=== PATIENT | male | born 1930 | race Caucasian/White ===

== ENCOUNTER 2017-04-07 12:48 | Inpatient (IN) | payer OTHER, MEDICARE ==
[~2017-04-07] VITALS: Ht 177.8 cm; Wt 104.9 kg
--- NOTE | 2017-04-07 13:14 | NUR ---
PT TO ED FOR BILATERAL LOWER LEG SWELLING AND REDNESS, SIB DR PEREZ, LEGS APPEAR VERY EDEMATOUS AND RED.
--- NOTE | 2017-04-07 13:40 | NUR ---
PT ALERT, HELPED ONTO STRETCHER. PT HAS BILATERAL LOWER EXTREMITIY EDEMA THAT IS BANDAGED. PT REPORTS WAS JUST AT DR OFFICE AND THEY WERE WRAPPED. PT STATES THAT HE IS HERE TO BE ADMITTED. PT IN NAD.
--- NOTE | 2017-04-07 14:11 | RADIOLOGY REPORT ---
EXAMINATION: XR PORTABLE CHEST CLINICAL INFORMATION: Chronic edema. COMPARISON: Chest radiograph 01/13/2007. TECHNIQUE: Portable frontal view of the chest was obtained. FINDINGS: There are ill-defined opacities within both upper lobes. Lung bases are clear. There is no pleural effusion or pneumothorax. The cardiac silhouette and upper mediastinal contours are unremarkable. No acute osseous finding. IMPRESSION: There are ill-defined bilateral upper lobe opacities. An additional lateral projection can be obtained. Alternatively a dedicated CT scan of the chest can be obtained for better anatomic characterization of these findings.
--- NOTE | 2017-04-07 14:12 | NUR ---
BLOOD DRAWN AND SENT TO THE LAB ([facility])
--- NOTE | 2017-04-07 14:33 | NUR ---
LOVE JEAN IN LAB, RN NOTIFIED
--- NOTE | 2017-04-07 14:48 | ED SKIN/ALLERGY COMPLAINT ---
History of Present Illness General Chief Complaint: Lower Extremity Problems Stated Complaint: BILATERAL LEG WOUNDS SENT BY DR. STINSON Source: patient, old records Exam Limitations: no limitations Vital Signs & Intake/Output Vital Signs & Intake/Output Vital Signs Date Time Temp Pulse Resp B/P B/P Pulse O2 O2 Flow FiO2 Mean Ox Delivery Rate 04/07 1314 98.0 72 18 150/70 100 Room Air Allergies Coded Allergies: No Known Allergies (04/07/17) Triage Note: PT TO ED FOR BILATERAL LOWER LEG SWELLING AND REDNESS, SIB DR PEREZ, LEGS APPEAR VERY EDEMATOUS AND RED. Triage Nurses Notes Reviewed? yes Onset: 6 weeks Duration: week(s):, constant, continues in ED, getting worse Timing: recent history Severity: severe Location: extremities Possible Factors: no cause identified No Modifying Factors: none Associated Symptoms: blisters, change in skin texture, rash HPI: 6 weeks prior to admission patient complains of increasing swelling to bilateral lower extremities with wheezing of fluid. He denies fever chills nausea vomiting diarrhea abdominal pain chest pain shortness breath headache dysuria bleeding. Past History Travel History Traveled to [place] past 21 day No Medical History Any Pertinent Medical History? see below for history Neurological: NONE [place]: [place] Cardiovascular: AFIB, SVT Respiratory: NONE Gastrointestinal: NONE Hepatic: NONE Renal: NONE Musculoskeletal: NONE Psychiatric: NONE Endocrine: diabetes Blood Disorders: NONE Cancer(s): NONE Surgical History Surgical History: non-contributory Psychosocial History Past Psychosocial History Unobtainable at this time Tobacco Use: Never used ETOH Use: denies use Illicit Drug Use: denies illicit drug use Family History Hx Contributory? No Review of Systems Review of Systems Constitutional: Reports: no symptoms. EENTM: Reports: no symptoms. Respiratory: Reports: no symptoms. Cardiovascular: Reports: no symptoms. GI: Reports: no symptoms. Genitourinary: Reports: no symptoms. Musculoskeletal: Reports: no symptoms. Skin: Reports: see HPI, change in skin color, rash. Neurological/Psychological: Reports: no symptoms. Hematologic/Endocrine: Reports: no symptoms. Immunologic/Allergic: Reports: no symptoms. All Other Systems: Reviewed and Negative Physical Exam Physical Exam General Appearance: well developed/nourished, alert, awake, anxious, moderate distress, obese Head: atraumatic, normal appearance Eyes: Bilateral: normal appearance, PERRL, EOMI. Ears, Nose, Throat: normal pharynx, normal ENT inspection, hearing grossly normal Neck: normal inspection, supple, full range of motion Respiratory: normal breath sounds, chest non-tender, no respiratory distress, quiet respiration, lungs clear Cardiovascular: normal peripheral pulses, irregularly irregular, norml femoral pulses equa Peripheral Pulses: 4+ carotid (R), 4+ carotid (L) Gastrointestinal: normal bowel sounds, soft, non-tender, no organomegaly Back: normal inspection, normal range of motion, no vertebral tenderness Extremities: normal inspection, normal capillary refill, normal range of motion, pedal edema, no ligament instability Neurologic/Psych: no motor/sensory deficits, awake, alert, oriented x 3, normal gait, normal mood/affect Reflexes: 2+: bicep (R), bicep (L). Skin: rash Skin Problem Location: lower extremities Skin Problem Character: patchy (Erythema), rash, scales, swelling, thickening Lymphatic: no anterior cervical art Progress Differential Diagnosis: abscess/cellulitis, contact dermatitis, CHF, lymphedema Plan of Care: Orders Procedure Date/time Status Regular Diet 04/07 D Active BLOOD CULTURE 04/[address] CHEST WO IV CONTRAST 04/07 1421 Active OXYGEN SETUP (GEN) 04/07 1340 Active Saline Lock 04/07 1340 Active Admit to inpatient 04/07 1340 Active Vital Signs 04/07 1340 Active Activity/Ambulation 04/07 1340 Active TROPONIN LEVEL 04/07 1340 Complete MAGNESIUM 04/07 1340 Complete COMPREHENSIVE METABOLIC PANEL 04/07 1340 Complete CBC WITHOUT DIFFERENTIAL 04/07 1340 Complete B-TYPE NATRIURETIC PEP (BNP) 04/07 1340 Complete EKG 04/07 1340 Active Code Status 04/07 1340 Active Laboratory Tests 04/07/17 1440: RBC 3.63 L, MCV 94.7 H, MCH 31.0, RDW 13.8, MPV 9.0, Gran % 79.2 H, Lymphocytes % 12.2 L, Monocytes % 7.1, Eosinophils % 1.1, Basophils % 0.4, Absolute Granulocytes 6.0, Absolute Lymphocytes 0.9 L, Absolute Monocytes 0.5, Absolute Eosinophils 0.1, Absolute Basophils 0, PUBS MCHC 32.8 L 04/07/17 1406: Anion Gap 10, Estimated GFR 53 L, BUN/Creatinine Ratio 32.3 H, Glucose 124 H, Calcium 8.8, Magnesium 2.2, Total Bilirubin 0.9, AST 31, ALT 50, Alkaline Phosphatase 87, Troponin I 0.02, [id number] Pept 4070 H, Total Protein 6.5, Albumin 3.5, Globulin 3.0, Albumin/Globulin Ratio 1.2 Microbiology 04/07 1440 BLOOD: Blood Culture - RECD 04/07 1421 BLOOD: Blood Culture - ORD Diagnostic Imaging: Viewed by Me: Radiology Read. Discussed w/RAD: Radiology Read. CXR Impression: There are ill-defined bilateral upper lobe opacities. An additional lateral projection can be obtained. Alternatively a dedicated CT scan of the chest can be obtained for better anatomic characterization of these findings. Departure Departure Time of Disposition: 1512 Disposition: STILL A PATIENT Condition: Stable Clinical Impression Primary Impression: Cellulitis Qualifiers: Site of cellulitis: extremity Site of cellulitis of extremity: lower extremity Laterality: unspecified laterality Qualified Code: L03.119 - Cellulitis of unspecified part of limb Secondary Impressions: Atrial fibrillation with normal ventricular rate, Lymphedema of both lower extremities Referrals: PATIENT HAS NO PRIMARY CARE DR (PCP/Family) Departure Forms: Customer Survey General Discharge Information Admission Note Spoke With: PENNY JOHNSON,TRA Documentation of Exam: Documentation of any treatments & extenuating circumstances including Concerns Regarding Discharge (functional status, medication knowledge or non-compliance, living conditions, etc.) that warrant an admission rather than observation: IV antibiotics IV diuresis serial lab exam cardiology evaluation medication adjustment physical therapy continuing care discharge planning
[2017-04-07 14:58] LABS: ABSOLUTE BASOPHIL COUNT 0 /CUMM (0.0-0.2); ABSOLUTE EOSINOPHIL COUNT 0.1 /CUMM (0.0-0.7); ABSOLUTE LYMPH COUNT 0.9 /CUMM (1.2-3.4); ABSOLUTE MONOCYTE COUNT 0.5 /CUMM (0.10-0.60); BASOPHIL % 0.4 % (0.0-2.0); EOSINOPHIL % 1.1 % (0-5); HEMATOCRIT 34.4 % (42-52); MEAN CORPUSCULAR HGB CONC 32.8 G/DL (33.0-37.0); MEAN CORPUSCULAR VOLUME 94.7 FL (80.0-94.0); PLATELET COUNT 171 /CUMM (130-400); RBC DISTRIBUTION WIDTH 13.8 % (11.5-14.5); RED BLOOD CELL CT 3.63 /CUMM (4.70-6.10); WHITE BLOOD CELL COUNT 7.6 /CUMM (4.8-10.8)
[2017-04-07 14:59] LABS: GRANULOCYTE % 79.2 % (42.2-75.2)
--- NOTE | 2017-04-07 15:56 | NUR ---
PT RETURNED FROM CT SCAN
--- NOTE | 2017-04-07 16:07 | NUR ---
PT GIVEN DINNER TRAY
--- NOTE | 2017-04-07 16:12 | CT SCAN REPORT ---
EXAMINATION: CT CHEST WITHOUT CONTRAST CLINICAL INFORMATION: Apical opacities on plain film. Chronic edema. COMPARISON: Chest x-ray 04/07/2017 TECHNIQUE: Multidetector volumetric CT imaging of the chest was done. Axial MIP volume rendering provided. Sagittal and coronal reformatted images were obtained. No oral or intravenous contrast. DLP: 382.38 mGy-cm FINDINGS: LUNGS: There is a vague approximately 1 cm groundglass opacity in the anterior right upper lobe, sagittal image 101. There is a 1.8 cm groundglass opacity at the right lung apex, coronal image 75. These are nonspecific. There is no consolidative infiltrate. There are a few small subpleural reticular opacities particularly in the right upper lobe. The central bronchial airways are open. No bronchiectasis. No interstitial changes. MEDIASTINUM: Atherosclerotic vascular wall calcifications of aorta and the origin of great vessels. There is coronary artery calcification. No mediastinal mass or lymphadenopathy. PLEURA: There is no pleural effusion. No pleural mass or thickening. AXILLA: No lymphadenopathy. UPPER ABDOMEN: Multiple renal cortical cysts. OSSEOUS STRUCTURES: Multilevel degenerative spondylosis of spine with disc height narrowing and endplate spurs of vertebrae. IMPRESSION: 2 small groundglass opacities in the right upper lobe.. The groundglass opacity can be followed up in 6 months as per 2017 Fleischner Society recommendations . The lungs are otherwise clear.
--- NOTE | 2017-04-07 18:12 | History & Physical ---
CHELITA AVILEZ MD 04/07/17 1811: General Information and HPI MD Statement: I have seen and personally examined RICCI BECKER and documented this H&P. The patient is a 86 year old M who presented with a patient stated chief complaint of [increased lower extremity swelling and erythema]. Source of Information: patient Exam Limitations: no limitations History of Present Illness: Patient is a 86-year-old male with past medical history significant for chronic venous insufficiency, atrial fibrillation (follows Dr. Schmidt), SVT, Type 2 diabetes (on metformin) came to the ER after being sent by Dr. Adler for progressive worsening of lower extremity edema requiring inpatient management. Patient had a long history of bilateral lower extremity edema has been following with wound care requiring compression stockings. For the past 2 months he has been on Joss bandages. Further his Lasix has been increased from 40 twice a day to 40 TID as his edema is getting worse. In addition the wounds in the right lower extremity weeping and erythematous, while left ovary approximately is crusted without any evident discharge. He denies any recent fevers, chills, infections. Able to tolerate his diet well. No recent changes in appetite/diet/medications (except Lasix). Reportedly patient is active at baseline, performs his ADLs with the help of his by himself. He usually drives to the wound center by himself. He takes his medications by himself, but unable to provide a list. Allergies/Medications Allergies: Coded Allergies: No Known Allergies (04/07/17) Home Med list Allopurinol 100 MG TABLET 1 TAB PO DAILY GOUT (Reported) Atorvastatin Calcium (Lipitor) 20 MG TABLET 1 TAB PO DAILY HLD (Reported) Furosemide (Lasix) 40 MG TABLET 1 TAB PO BID LEG SWELLING (Reported) Lisinopril 10 MG TABLET 1 TAB PO DAILY HTN (Reported) Metformin HCl (Glucophage) 1,000 MG TABLET 1 TAB PO DAILY DM (Reported) Metoprolol Tartrate 25 MG TABLET 1 TAB PO BID SVT (Reported) Potassium Chloride (Klor-Con) 20 MEQ PACKET 1.5 PO DAILY CHF (Reported) Warfarin Sodium 5 MG TABLET 1 TAB PO DAILY A FIB (Reported) Compliance With Home Meds: GOOD Past History Travel History Traveled to [place] past 21 day No Medical History Neurological: NONE EENT: [place] Cardiovascular: AFIB, SVT Respiratory: NONE Gastrointestinal: NONE Hepatic: NONE Renal: NONE Musculoskeletal: NONE Psychiatric: NONE Endocrine: diabetes Blood Disorders: NONE Cancer(s): NONE Surgical History Surgical History: non-contributory Past Family/Social History Psychosocial History Past Psychosocial History Unobtainable at this time Where do you live? Home Who Do You Live With? spouse Services at Home: None Smoking Status: Former Smoker ETOH Use: occasional use Illicit Drug Use: denies illicit drug use Functional Ability ADLs Independent: dressing, eating, toileting, bathing. Ambulation: independent IADLs Independent: shopping, housework, finances, food prep, telephone, transportation , medication admin. Review of Systems Review of Systems Constitutional: Reports: see HPI. EENTM: Reports: see HPI. Cardiovascular: Denies: chest pain. Respiratory: Denies: cough, orthopnea, short of breath. GI: Denies: abdominal pain. Genitourinary: Denies: see HPI. Comments ROS negative except above Exam & Diagnostic Data Last 24 Hrs of Vital Signs/I&O Vital Signs Date Time Temp Pulse Resp B/P B/P Pulse O2 O2 Flow FiO2 Mean Ox Delivery Rate 04/07 1314 98.0 72 18 150/70 100 Room Air Intake & Output 04/07 1600 04/07 0800 04/07 0000 Intake Total Output Total Balance Patient 102.058 kg Weight Weight Reported by Patient Measurement Method Physical Exam General Appearance Alert, Oriented X3, Cooperative, No Acute Distress Skin No Rashes, No Breakdown, warm to touch HEENT Atraumatic, PERRLA, EOMI Neck Supple Cardiovascular Normal S1, Normal S2 Lungs Clear to Auscultation, Normal Air Movement Abdomen Normal Bowel Sounds, Soft, No Tenderness Neurological Normal Speech, Sensation Intact Extremities No Clubbing, No Cyanosis, bilateral lower extremity edema with extensive skin breakdown with erythema, plate formation, scaly skin. Weeping evident on right side greater than left side. Vascular Normal Pulses Body Front and Back (Adult) 1) Extensive skin breakdown, scaly, crusted, wheeping on the right side. Erthema evident on the right > left side. Last 24 Hrs of Labs/Robin: Laboratory Tests 04/07/17 1440: PT Pending, INR Pending, RBC 3.63 L, MCV 94.7 H, MCH 31.0, RDW 13.8, MPV 9.0, Gran % 79.2 H, Lymphocytes % 12.2 L, Monocytes % 7.1, Eosinophils % 1.1, Basophils % 0.4, Absolute Granulocytes 6.0, Absolute Lymphocytes 0.9 L, Absolute Monocytes 0.5, Absolute Eosinophils 0.1, Absolute Basophils 0, PUBS MCHC 32.8 L 04/07/17 1406: Anion Gap 10, Estimated GFR 53 L, BUN/Creatinine Ratio 32.3 H, Glucose 124 H, Calcium 8.8, Magnesium 2.2, Total Bilirubin 0.9, AST 31, ALT 50, Alkaline Phosphatase 87, Troponin I 0.02, [id number] Pept 4070 H, Total Protein 6.5, Albumin 3.5, Globulin 3.0, Albumin/Globulin Ratio 1.2 Microbiology 04/07 1515 BLOOD: Blood Culture - RECD 04/07 1440 BLOOD: Blood Culture - RECD Assessment/Plan Assessment: 86-year-old male with PMH of A. fib, SVT, diabetes was sent to ED by for progressive worsening of bilateral leg swelling. ER course Vital signs Afebrile, pulse 72, blood pressure 150/70 mmHg, on room air Significant labs Creatinine 1.3 (unknown baseline) INR is 1.39 Imaging Chest x-ray There are ill-defined bilateral upper lobe opacities. An additional lateral projection can be obtained. Alternatively a dedicated CT scan of the chest can be obtained for better anatomic characterization of these findings. Chest CT 2 small groundglass opacities in the right upper lobe. The groundglass opacity can be followed up in 6 months as per 2017 Fleischner Society recommendations . The lungs are otherwise clear. Plan Admitted to general medicine floor Bilateral lower extremity edema - suspected cellulitis Long-standing history of chronic venous insufficiency resulting in bilateral lower extremity edema. He has been following wound care center with recent change in dressings and Joss bandages from stockings, recent increase in Lasix dose to 120 mg from 80 mg. Despite any improvement there is progressive worsening of the condition with increased pain/erythema/warmth concerning superadded infection. Although he had clustered weeping wounds, he remained afebrile without any white count. * Start IV Lasix 40 mg twice a day. * Watch off antibiotics * Encourage leg elevation, local wound care. * Closely Monitor creatinine. * Starting Unasyn IV every 6 * Pain control with oxycodone 10 mg every 8 when necessary, IV Tylenol * Wound care consult Rate controlled Atrial fibrillation Patient reports he was not in A. fib 6 months ago. He follows Dr. River ( casing puller) for SVT and A. fib. Currently we are not sure whether this is acute versus chronic. INR of 1.39 suggests he is on anticoagulation. * Rate control with metoprolol tartrate 25 twice a day * anti-cognition with warfarin - goal INR 2-3 * CHADVasc score of 3 * Cardiology consult Chronic and stable conditions Diabetes mellitus: Accu-Cheks and insulin sliding scale (on metformin at home) Gout: Allopurinol 100 mg daily DVT prophylaxis * On warfarin CODE STATUS * Full code As Ranked By This Provider Problem List: 1. Cellulitis Qualifiers Site of cellulitis: extremity Site of cellulitis of extremity: lower extremity Laterality: unspecified laterality Qualified Code: L03.119 - Cellulitis of unspecified part of limb 2. Atrial fibrillation with normal ventricular rate 3. Lymphedema of both lower extremities Core Measures/Miscellaneous Acute Coronary Syndrome ACS Diagnosis: No Cerebrovascular Accident CVA/TIA Diagnosis: No Congestive Heart Failure CHF Diagnosis: No Venous Thromboembolism VTE Risk Factors: Immobility, paresis No [facility] VTE prophylaxis d/t: No contraindications No VTE Pharm Prophylaxis d/t: No contraindications VTE Diagnosis: No VTE Type: NONE VTE Confirmed by (Test): NONE Severe Sepsis Severe Sepsis Present: No Septic Shock Septic Shock Present: No Miscellaneous Documentation Attending Case Discussed With: TRA FRANCIS MD Primary Care Physician: PATIENT HAS NO PRIMARY CARE DR Patient sees these Specialists Dr. Trevino Level of Patient Care: General Medicine TRA FRANCIS MD 04/07/17 3712: Attending MD Review Statement Attending Statement Attending MD Statement: examined this patient, discuss w/resident/PA/ADULT PROBATION OFFICER, agreed w/resident/PA/ADULT PROBATION OFFICER, reviewed EMR data (avail) Attending Assessment/Plan: 86M PMH atrial fibrillation, T2DM sent from wound clinic for worsening of bilateral leg cellulitis. Both legs are erythematous, warm, and swollen. Patient complains of discomfort but is otherwise fine, afebrile, normal WBC. Suspect more stasis dermatitis than cellulitis since it's bilateral. ED gave Unasyn. Will need leg elevation, wound care consult, compression. Can continue antibiotics for another few days. BUFFY JOHNSON,KAYODE 04/07/17 2012: Resident Review Statement Other Findings: 86-year-old male with past medical history of A. fib, SVT, diabetes was sent to ED by for worsening of bilateral leg swelling. Patient has history of bilateral leg swelling for more than 10 years, which has been well-controlled for so many years as he was using compression stockings. Patient recently switched to Joss bandage over the last 2 months and noticed that his swelling was getting worse with right leg more than the left. He is on 80 mg of Lasix by mouth at home, has recently been taking 120. Denies fever, chills, shortness of breath, palpitations, chest pain or pressure. He has been following up with Dr. Allen and Dr. River for SVT. Atrial fibrillation has had history of a atrial fibrillation in the past. On examination patient alert awake oriented, no acute distress Cardiovascular: S1, S2 regular Respiratory: Bilateral breath sounds equal, no wheeze monitor crackles Abdomen: Soft, nontender, bowel sounds present Extremities: Bilateral leg swelling with discoloration of the skin present on both legs. Right leg swelling than the left. Some hyperemic areas visible on the right leg. Please refer to H&P for labs and vitals and imaging studies Assessment and plan 1. Bilateral lower extremity swelling secondary to venous stasis( no fever, white count which is against infection) - We'll admit patient to general medical floor - Leg elevation - Strict I's and O's - We'll start him on IV Lasix with close creatinine monitoring - Patient received 1 dose of Unasyn. Since no white count or fever we will monitor him off antibiotics - WOund consullt in AM 2. History of SVT - We will continue beta blockers. - Follows Dr. Alexei River 3. History of atrial fibrillation - Current EKG showed A. fib etiology unclear, rate controlled - CHADS Vasc score is 3. - We will check his INR and dose coumadin accordingly Full CODE STATUS DVT ppx with coumadin
--- NOTE | 2017-04-07 18:24 | PN- Student ---
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 The patient was diagnosed with venous stasis by Dr. Richardson 7 years and has been using compresison to control the swelling. He was in his usual state of health until 2 months ago when he started to have progressively worsening burning pain, redness , and swelling in the lower extremities. He describes his pain as a 4/10 at rest and a 9/10 while walking. The pt states that he went to his oracle application consultant and recommended him to go to a sample coordinator for his " skin". Software Integrator prescribed him triamcinolone acetonide 0.1% on his legs, but he states that it made his pain worse. He decided to "sterile" cotton in the internet and EVELYNE bandages to wrap his legs to allow the " skin to come off." However, this caused his legs to swell and hurt more. He states that he puts Eucerin on occassion to help the burning. ROS: Denies fever, chills, orthopnea, SOB, palpitations, Nausea, vomiting, constipation, diarrhea PMHX: Atrial Fibrillation diagnosed 10 years ago SVT diagnosed 20 years ago Venous stasis diagnosed 7 years ago SGHX: Repaired nose Medications: Furosemide 40 mg TID Metformin (Need to do Med Rec) Allergies: NKDA Social Hx: , lives with Retired Stopped smoking in 1967 ETOH: 1 drink every day. Stopped drinking a 1 1/2 week ago due to his leg swelling and pain Objective Objective: PE: Neuro: Alert and Oriented. Cooperative, affect is appropriate. CV: Irregular rate and rhythm heard upon auscultation. Lungs: Clear bilaterally. No wheezes, rhonchi, or rales Abdomen: Normal bowel sound in all 4 quadrants. Nondistended, nontender. : Scrotal swelling present LE: Bilateral edema in the lower extremities. Warm to touch. Erythema and open wounds in the right lower leg. Vital Signs Date Time Temp Pulse Resp B/P B/P Pulse O2 O2 Flow FiO2 Mean Ox Delivery Rate 04/07 1314 98.0 72 18 150/70 100 Room Air Last 24 Hours I&Os 04/07 1600 04/07 0800 04/07 0000 Intake Total Output Total Balance Patient 225 lb Weight Weight Reported by Patient Measurement Method Laboratory Tests 04/07/17 1440: RBC 3.63 L, MCV 94.7 H, MCH 31.0, RDW 13.8, MPV 9.0, Gran % 79.2 H, Lymphocytes % 12.2 L, Monocytes % 7.1, Eosinophils % 1.1, Basophils % 0.4, Absolute Granulocytes 6.0, Absolute Lymphocytes 0.9 L, Absolute Monocytes 0.5, Absolute Eosinophils 0.1, Absolute Basophils 0, PUBS MCHC 32.8 L 04/07/17 1406: Anion Gap 10, Estimated GFR 53 L, BUN/Creatinine Ratio 32.3 H, Glucose 124 H, Calcium 8.8, Magnesium 2.2, Total Bilirubin 0.9, AST 31, ALT 50, Alkaline Phosphatase 87, Troponin I 0.02, Xsq-[id number]-Muuvttbuwwv Pept 4070 H, Total Protein 6.5, Albumin 3.5, Globulin 3.0, Albumin/Globulin Ratio 1.2 Microbiology Date/Time Procedure - Status Source Growth 04/07 1515 Blood Culture - RECD BLOOD Orders Procedure Date/time Status Regular Diet 04/07 D Active Patient Data 04/07 1531 Active Intake & Output 04/07 1448 Active BLOOD CULTURE 04/07 1421 Active OXYGEN SETUP (GEN) 04/07 1340 Active Saline Lock 04/07 1340 Active Admit to inpatient 04/07 1340 Active Vital Signs 04/07 1340 Active Activity/Ambulation 04/07 1340 Active TROPONIN LEVEL 04/07 1340 Complete MAGNESIUM 04/07 1340 Complete COMPREHENSIVE METABOLIC PANEL 04/07 1340 Complete CBC WITHOUT DIFFERENTIAL 04/07 1340 Complete B-TYPE NATRIURETIC PEP (BNP) 04/07 1340 Complete EKG 04/07 1340 Active Code Status 04/07 1340 Active EKG: Rate 65, Irregularly Iregular, normal axis. No P waves before QRS. Suggestive of Afib Assessment/Plan Assessment: Assessment: Pt. is an 86 y.o MCM with a history of Afib, SVT, DM, and venous stasis presenting with a 2 mo hx of progressively worsening bilateral LE edema, erythema, and burning pain. DDx: Cellulitis: Pt. presents with erythmea, edema, warmth, and pain and labs shows granulocytosis. He also has a history of venous stasis that could have precipitated cellulitis. Afib: Pt. has a history of Afib. Heart rate was irregularly irregular upon auscultation. Insufficient cardiac pumping can cause blood to back up into the systemic system. HF: Pt. has leg swelling and current Afib. Arrythmias can precipitate heart failure and cause his legs to be edematous Plan: Admit to [facility] floor 1. Leg swelling: empiric treatment for possible infection. Daily CBC. Lasix to decrease swelling
--- NOTE | 2017-04-07 18:54 | Admission Certification ---
Admission Certification Certification Statement - As attending physician, I certify that at the time of - admission, based on clinical presentation, severity of - symptoms, need for further diagnostic testing and - therapeutic interventions, and risk of adverse outcomes - without in-hospital treatment, in my clinical assessment, - this patient requires an acute hospital stay for a minimum - of two nights or longer. I have also considered psychsocial - factors such as support system, advanced age, financial - issues, cognitive issues, and failed out-patient treatments, - past re-admission history, safety of patient, and lack of - compliance as applicable. Specific rationale supporting this admission is: Worsening bilateral leg cellulitis with erythema, wamrth, and weeping
--- NOTE | 2017-04-07 20:14 | NUR ---
PT RESTING COMFORTABLY ON STRETCHER, DENIES NEEDS AT THIS TIME, VSS. AWAITING ADMISSION.
[2017-04-07] MEDS ORDERED: GLUCOPHAGE1000 M1 PO (20:56)
[2017-04-07] MEDS ORDERED: KLOR-CON20 ME1 PO (20:56)
[2017-04-07] MEDS ORDERED: METOPROLOL TART25 M1 PO (20:57)
[2017-04-07] MEDS ORDERED: LASIX40 M1 PO (20:57)
[2017-04-07] MEDS ORDERED: WARFARIN SODIUM5 M1 PO (20:57)
[2017-04-07] MEDS ORDERED: ALLOPURINOL100 M1 PO (20:57)
[2017-04-07] MEDS ORDERED: LISINOPRIL10 M1 PO (20:58)
[2017-04-07] MEDS ORDERED: LIPITOR20 M2 PO (20:58)
[2017-04-07 21:27] LABS: PT 14.5 SEC (9.4-12.5)
--- NOTE | 2017-04-07 23:59 | NUR ---
PT GOING TO ROOM 230-2
[2017-04-08 00:59] VITALS: BP 134/60
--- NOTE | 2017-04-08 02:07 | Event Note ---
Event Note Event Note: ALPs discontinued due to discomfort.
[2017-04-08 06:45] VITALS: BP 100/70
--- NOTE | 2017-04-08 07:01 | PN- Housestaff ---
FATMATA JOHNSON,CHELITA 04/08/17 0701: Subjective Follow-up For: Bilateral lower extremity edema Suspected Cellulitis Subjective: I saw and examined the patient today morning He is doing well, No overnight events. Still had pain in the lower extremities. No fever, chills. Review of Systems Constitutional: Reports: see HPI. Comments: ROS negative except the above. Objective Last 24 Hrs of Vital Signs/I&O Vital Signs Date Time Temp Pulse Resp B/P B/P Pulse O2 O2 Flow FiO2 Mean Ox Delivery Rate 04/08 0645 97.9 77 20 100/70 96 Room Air 04/08 0059 99.6 58 20 134/60 96 Room Air 04/07 2300 98.5 69 18 141/65 04/07 2259 98.5 69 18 141/65 97 Room Air Room Air 04/07 2014 98.7 76 16 156/72 97 Room Air 04/07 1314 98.0 72 18 150/70 100 Room Air Intake & Output 04/08 0800 04/08 0000 04/07 1600 Intake Total Output Total 800 Balance -800 Output, Urine 800 Patient 102.058 kg 102.058 kg Weight Weight Reported by Patient Reported by Patient Measurement Method Physical Exam General Appearance: Alert, Oriented X3, Cooperative, No Acute Distress Skin: No Rashes, No Breakdown HEENT: Atraumatic, PERRLA, EOMI Neck: Supple Cardiovascular: Normal S1, Normal S2 Lungs: Clear to Auscultation, Normal Air Movement Abdomen: Normal Bowel Sounds, Soft, No Tenderness Neurological: Normal Speech, Strength at 5/5 X4 Ext, Sensation Intact Extremities: No Clubbing, No Cyanosis, 4+ pitting edema present Vascular: Normal Pulses Current Medications: Current Medications Sig/Elliot Start time Last Medication Dose Route Stop Time Status Admin Acetaminophen 650 MG Q8P PRN 04/07 2115 AC 04/08 PO 0341 Acetaminophen 1,000 MG Q8P PRN 04/07 2115 AC IV Allopurinol 100 MG DAILY 04/08 1000 AC PO Ampicillin Sodium/ 3,000 MG Q6H 04/08 0200 AC 04/08 Sulbactam Sodium IV 0223 Sodium Chloride 100 ML Ampicillin Sodium/ 3,000 MG Q6 04/07 2359 DC Sulbactam Sodium IV Sodium Chloride 100 ML Ampicillin Sodium/ 0 .STK-MED ONE 04/07 1533 DC Sulbactam Sodium .ROUTE Ampicillin Sodium/ 3,000 MG ONCE ONE 04/07 1515 DC 04/07 Sulbactam Sodium IV 04/07 1544 1538 Sodium Chloride 100 ML Atorvastatin Calcium 20 MG DAILY 04/08 1000 AC PO Enoxaparin Sodium 40 MG DAILY 04/08 1000 CAN SC Furosemide 40 MG DAILY 04/08 1000 AC IV Furosemide 0 .STK-MED ONE 04/07 1533 DC IV Furosemide 40 MG ONCE ONE 04/07 1515 DC 04/07 IV 04/07 1516 1538 Insulin Aspart 0 TIDAC 04/08 0800 AC SC Metoprolol Tartrate 0 .STK-MED ONE 04/07 2257 DC PO Metoprolol Tartrate 25 MG BID 04/07 2200 AC 04/07 PO 2300 Oxycodone HCl 10 MG Q8P PRN 04/075 AC PO Warfarin Sodium 5 MG ONCE ONE 04/07 2145 DC 04/07 PO 04/07 2146 2300 Last 24 Hrs of Lab/Robin Results Last 24 Hrs of Labs/Mics: Laboratory Tests 04/08/17 0619: Anion Gap 10, Estimated GFR 53 L, BUN/Creatinine Ratio 27.7 H, PT 15.3 H, INR 1.46 H Assessment/Plan Assessment: 86-year-old male with PMH of A. fib, SVT, diabetes was sent to ED by for progressive worsening of bilateral leg swelling. Patient is mobile at baseline. Although warm and mildly tender to touch - no white count and leukocytosis --> less likely superadded cellulitis. We did a doppler ultrasound to rule out DVT given subtherapeutic INR and not very mobile - negative. Imaging Chest x-ray There are ill-defined bilateral upper lobe opacities. An additional lateral projection can be obtained. Alternatively a dedicated CT scan of the chest can be obtained for better anatomic characterization of these findings. Chest CT 2 small groundglass opacities in the right upper lobe. The groundglass opacity can be followed up in 6 months as per 2017 Fleischner Society recommendations . The lungs are otherwise clear. Plan Admitted to general medicine floor Bilateral lower extremity edema - suspected cellulitis Long-standing history of chronic venous insufficiency resulting in bilateral lower extremity edema. He has been following wound care center with recent change in dressings and Joss bandages from stockings, recent increase in Lasix dose to 120 mg from 80 mg. Despite any improvement there is progressive worsening of the condition with increased pain/erythema/warmth concerning superadded infection. Although he had clustered weeping wounds, he remained afebrile without any white count, so less likely of an infection. * IV Lasix 40 mg twice a day. * Watch off antibiotics * Encourage leg elevation, local wound care. * Closely Monitor creatinine. * Watching off antibiotics * Pain control with oxycodone 10 mg every 8 when necessary, IV Tylenol * Wound care consult Rate controlled Atrial fibrillation Patient reports he was not in A. fib 6 months ago. He follows Dr. Espinoza ( forest supervisor) for SVT and A. fib. Currently we are not sure whether this is acute versus chronic. INR of 1.39 suggests he is on anticoagulation. * Rate control with metoprolol tartrate 25 twice a day * anti-coagulation with warfarin - goal INR 2-3 * CHADVasc score of 3 Ground glass opacities Suggestive of 2 small ground glass opacities that requires follow up. Chronic and stable conditions Diabetes mellitus: Accu-Cheks and insulin sliding scale (on metformin at home) Gout: Allopurinol 100 mg daily DVT prophylaxis * On warfarin CODE STATUS * Full code Problem List: 1. Cellulitis 2. Atrial fibrillation with normal ventricular rate 3. Lymphedema of both lower extremities Pain Ratin Pain Location: right lower extremities Pain Goal: Pain 4 or less Pain Plan: tylenol prn oxycodon Tomorrow's Labs & Rationales: bep while on IV lasix to monitor electrolytes and creatinine. ENRIQUE ESPINOZA MD 04/08/17 1300: Attending MD Review Statement Attending Statement Attending MD Statement: examined this patient, discuss w/resident/PA/GENERAL CAR SUPERVISOR YARD, agreed w/resident/PA/GENERAL CAR SUPERVISOR YARD, reviewed EMR data (avail), discussed with nursing, discussed with case mgmt Attending Assessment/Plan: 86-year-old male past medical history of diabetes, A. fib on Coumadin and history of chronic stasis dermatitis. He says he followed with the wound care center 7 years ago then didn't follow-up and then came yesterday when he was sent to the emergency room for concern of cellulitis and worsening edema. He also says that he recently cut his Coumadin dose. On admission his INR was subtherapeutic, he was initially given antibiotics but given the lack of fever or white count and given that the skin changes all look chronic, at this point are watching him off antibiotics. We got an ultrasound of the right lower extremity because it was asymmetric edema and with a subtherapeutic INR, we were worried about a DVT. Luckily the ultrasound is negative for DVT. At this point I think the most important thing is leg elevation, aggressive diuresis watching his renal function closely and aggressive wound care. Will dose his Coumadin to keep his INR therapeutic and follow-up on wound care recommendations.
--- NOTE | 2017-04-08 07:50 | PN- Student ---
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 Pt. states he currently has a 1/10 burning leg pain in his lower legs which gets increases to a 9/10 when he is walking. He stated he slept poor because he felt hot, so he removed the blankets and felt more comfortable. Pt. also states that he reduced his warfarin dose in half due to his leg bleeding. Called the patient's 1330, she states that prior to the hospital, the pt would walk around, drive, go grocery shopping, carry all the groceries, and garden without any problem. Pt states that he was gardening last week, but stopped because his legs was hurting. The pt. and the states that he usually takes care of the household and has not had any outside help. Objective Objective: PE: Neuro and General: A&O x3, cooperative, and appropriate affect. He is in no apparent distress CV: HR=62, Irregular heart beats, no carotid bruits auscultated, JVP=9cm Pulmonary: Clear bilaterally. No rhonchi, wheezes, or rales GI: Normal bowel sounds in all 4 quadrants, nondistended, nontender. No aortic bruits heard upson auscultation : scrotal swelling LE: bilateral lower leg edema, erythema, warmth, and open wounds. Right leg is worse than the left. Right foot has 2+ pitting edema. Sharp sensation present in both feet. Doppler: States that there is no evidence of DVT. Found Cabrera's cyst 4.4 c Culture: No growth Day 1 Vital Signs Date Time Temp Pulse Resp B/P B/P Pulse O2 O2 Flow FiO2 Mean Ox Delivery Rate 04/08 1454 98.1 68 20 110/60 97 04/08 0910 70 120/50 04/08 0645 97.9 77 20 100/70 96 Room Air 04/08 0059 99.6 58 20 134/60 96 Room Air 04/07 2300 98.5 69 18 141/65 04/07 2259 98.5 69 18 141/65 97 Room Air Room Air 04/07 2014 98.7 76 16 156/72 97 Room Air 04/07 1314 98.0 72 18 150/70 100 Room Air Last 24 Hours I&Os 04/08 1600 04/08 0800 04/08 0000 Intake Total 640 Output Total 300 350 800 Balance 340 -350 -800 Intake, Oral 640 Output, Urine 300 350 800 Patient 225 lb Weight Weight Reported by Patient Measurement Method Laboratory Tests 04/08/17 0619: Anion Gap 10, Estimated GFR 53 L, BUN/Creatinine Ratio 27.7 H, PT 15.3 H, INR 1.46 H Microbiology Date/Time Procedure - Status Source Growth 04/07 1515 Blood Culture - RES BLOOD Orders Procedure Date/time Status BASIC ELECTROLYTES PLUS BUN&CR 04/09 06 Active Heart Healthy Diet 04/08 B Active Change service to 04/08 0817 Active PROTHROMBIN TIME 04/08 0600 Complete BASIC ELECTROLYTES PLUS BUN&CR 04/08 0600 Complete Vital Signs 04/08 0109 Active Teach/Educate 04/08 010 Active Pain Treatment and Response 04/08 0109 Active Nutritional Intake, Monitor 04/08 0109 Active Isolation 04/08 0109 Active Intake & Output 04/08 0109 Active Patient Care Conference 04/08 0109 Active Activity/Ambulation 04/089 Active Lab Add-on Test 04/08 UNK Active PHARMACY COMMUNICATION FORM 04/08 UNK Active Regular Diet 04/07 D Complete Add-on Test (ER Only) 04/07 2108 Active Pathway - chart 04/07 210 Active PROTHROMBIN TIME 04/07 205 Complete Pathway - chart 04/07 1845 Active House Staff 04/07 1845 Active Patient Data 04/07 1845 Active Code Status 04/07 1845 Active Patient Data 04/07 1531 Active Intake & Output 04/07 1448 Active BLOOD CULTURE 04/07 1421 Active GLYCOSYLATED HGB 04/07 1406 Complete OXYGEN SETUP (GEN) 04/07 1340 Active Saline Lock 04/07 1340 Active Admit to inpatient 04/07 1340 Active Vital Signs 04/07 1340 Active Activity/Ambulation 04/07 1340 Active TROPONIN LEVEL 04/07 1340 Complete MAGNESIUM 04/07 1340 Complete COMPREHENSIVE METABOLIC PANEL 04/07 1340 Complete CBC WITHOUT DIFFERENTIAL 04/07 1340 Complete B-TYPE NATRIURETIC PEP (BNP) 04/07 1340 Complete EKG 04/07 1340 Active Code Status 04/07 1340 Complete VTE Mechanical Prophylaxis 04/07 UNK Complete Nursing Misc 04/07 UNK Active Intake & Output 04/07 UNK Complete FingerStick- Glucose 04/07 UNK Active Elevate 04/07 UNK Active Assessment/Plan Assessment: Assessment and plan: 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 I think that this patient has an exacerbation of his venous stasis. The pt. decreased his warfarin and comes with bilateral leg edema and pain. We need continue his lasix to alleviate the fluid retention. Since he is also on warfarin, we need to monitor his INR and PT until it is in the therapeutic level. We also need to consult the wound team to get their recommendations. Although the patient has calor, dolor, palor, rubor, and granulocytosis, he does not exhibit any fever, chills, cough, or other signs of infection. We can put cellulitis as ddx, but it is lower in the list. Since he has asymmetric edema, we need to possibly consider other causes of his leg pain and swelling such as DVT. Doppler sound was performed and he did not show any thrombus in his legs. It does note a cabrera's cyst and I will read up on that. Since the patient's EKG showed Afib, it is possible that HF is causing his edema. Arrhythmias are one cause of heart failure, so this may be a possibility. He should continue on his cardiac medication and the proper does of warfarin.
[2017-04-08 08:17] LABS: PT 15.3 SEC (9.4-12.5)
--- NOTE | 2017-04-08 12:17 | ULTRASOUND REPORT ---
EXAMINATION: US TRIPLEX LOWER EXTREMITY, RIGHT CLINICAL INFORMATION: Pain and swelling COMPARISON: None TECHNIQUE: Color-flow triplex imaging with spectral analysis and compression Doppler were performed on the lower extremity. FINDINGS: Respiratory variation, normal compression and augmented flow are noted throughout the left lower extremity. The visualized common femoral vein, superficial femoral vein, profunda femoral vein, popliteal vein and midcalf peroneal and posterior tibial venous segments show no evidence of deep venous thrombosis. Cabrera's cyst measures up to 4.4 cm IMPRESSION: Normal triplex scan without evidence of deep venous thrombosis involving the lower extremity. Slightly limited evaluation of the calf veins. No definite DVT. Cabrera's cyst.
[2017-04-08 14:54] VITALS: BP 110/60
[2017-04-08 22:29] VITALS: BP 126/64
[2017-04-09 06:59] VITALS: BP 136/70
--- NOTE | 2017-04-09 07:24 | PN- Housestaff ---
FATMATA JOHNSON,CHELITA 04/09/17 0723: Subjective Follow-up For: stasis dermatitis bilateral lower extremity edema Subjective: I saw and examined the patient today morning He is doing well, reports intense pain in the lateral part of the right ankle region, which is similar to his pain during gout flare up. No overnight issues. No significant change in weight, infact increased 1lb. Review of Systems Constitutional: Reports: see HPI. Comments: ROS negative except the above. Objective Last 24 Hrs of Vital Signs/I&O Vital Signs Date Time Temp Pulse Resp B/P B/P Pulse O2 O2 Flow FiO2 Mean Ox Delivery Rate 04/09 0659 97.8 60 18 136/70 97 04/08 2229 99.7 60 20 126/64 97 Room Air 04/08 2121 69 128/70 04/08 1454 98.1 68 20 110/60 97 04/08 0910 70 120/50 Intake & Output 04/09 0800 04/09 0000 04/08 1600 Intake Total 100 734 640 Output Total 300 1000 300 Balance -200 -266 340 Intake, IV 14 Intake, Oral 100 720 640 Output, Urine 300 1000 300 Physical Exam General Appearance: Alert, Oriented X3, Cooperative, No Acute Distress Skin: No Rashes, erythematous wound in the right lower extremity. mild erythema over the left leg. HEENT: Atraumatic, PERRLA, EOMI Neck: Supple Cardiovascular: Normal S1, Normal S2 Lungs: Clear to Auscultation, Normal Air Movement Abdomen: Normal Bowel Sounds, Soft, No Tenderness Neurological: Normal Tone, Sensation Intact, Cranial Nerves 3-12 NL Current Medications: Current Medications Sig/Elliot Start time Last Medication Dose Route Stop Time Status Admin Acetaminophen 650 MG .STK-MED ONE 04/08 1745 DC PO 04/08 1746 Acetaminophen 650 MG Q8P PRN 04/07 2115 AC 04/09 PO 0152 Acetaminophen 1,000 MG Q8P PRN 04/07 211 AC IV Allopurinol 100 MG DAILY 04/08 1000 AC 04/08 PO 0910 Ampicillin Sodium/ 3,000 MG Q6H 04/08 0200 DC 04/08 Sulbactam Sodium IV 0223 Sodium Chloride 100 ML Atorvastatin Calcium 20 MG 1700 04/08 1700 AC 04/08 PO 1651 Atorvastatin Calcium 20 MG DAILY 04/08 1000 DC PO Furosemide 40 MG ONCE ONE 04/08 1630 DC 04/08 IV 04/08 1631 1651 Furosemide 40 MG DAILY 04/08 1000 AC 04/08 IV 0910 Insulin Aspart 0 TIDAC 04/08 0800 AC SC Metoprolol Tartrate 25 MG BID 04/07 2200 AC 04/08 PO 2121 Oxycodone HCl 10 MG Q8P PRN 04/07 2115 AC PO Patient Medication 1 ED .STK-MED ONE 04/08 1335 DC Teaching ED 04/08 1336 Warfarin Sodium 5 MG COUMADIN 1700 ONE 04/08 1700 DC 04/08 PO 04/08 1701 1651 Assessment/Plan Assessment: 86-year-old male with PMH of A. fib, SVT, diabetes was sent to ED by for progressive worsening of bilateral leg swelling. Patient is mobile at baseline. Although warm and mildly tender to touch - no white count and leukocytosis --> less likely superadded cellulitis. We did a doppler ultrasound to rule out DVT given subtherapeutic INR and not very mobile - negative. Imaging Chest x-ray There are ill-defined bilateral upper lobe opacities. An additional lateral projection can be obtained. Alternatively a dedicated CT scan of the chest can be obtained for better anatomic characterization of these findings. Chest CT 2 small groundglass opacities in the right upper lobe. The groundglass opacity can be followed up in 6 months as per 2017 Fleischner Society recommendations . The lungs are otherwise clear. Plan Admitted to general medicine floor Bilateral lower extremity edema - suspected cellulitis Long-standing history of chronic venous insufficiency resulting in bilateral lower extremity edema. He has been following wound care center with recent change in dressings and Joss bandages from stockings, recent increase in Lasix dose to 120 mg from 80 mg. Despite any improvement there is progressive worsening of the condition with increased pain/erythema/warmth concerning superadded infection. Although he had clustered weeping wounds, he remained afebrile without any white count, so less likely of an infection. * IV Lasix 80 mg twice a day. * Watch off antibiotics * Encourage leg elevation, local wound care. * Closely Monitor creatinine. * Pain control with oxycodone 10 mg every 8 when necessary, IV Tylenol * Wound care consult * Physical therapy suggested STR. Rate controlled Atrial fibrillation Patient reports he was not in A. fib 6 months ago. He follows Dr. River ( [employer]) for SVT and A. fib. INR is 1.39 at admission * Rate control with metoprolol tartrate 25 twice a day * anti-coagulation with warfarin - goal INR 2-3 -->2.0 today * CHADVasc score of 3 Right Ankle pain Patient had a history of gout, on allopurinol 100mg at home, colchicine for flares. He reports significant pain in his right heel, which apparently similar to his gouty attacks. * Xray right ankle shows soft tissue sweeling without any crystals. * started on colchicine 0.6mg BID for now. Ground glass opacities Suggestive of 2 small ground glass opacities that requires follow up. Chronic and stable conditions Diabetes mellitus: Accu-Cheks and insulin sliding scale (on metformin at home) Gout: Allopurinol 100 mg daily DVT prophylaxis * On warfarin CODE STATUS * Full code Problem List: 1. Lymphedema of both lower extremities 2. Atrial fibrillation with normal ventricular rate 3. Cellulitis Pain Ratin Pain Location: right heel region Pain Goal: Pain 4 or less Pain Plan: tylenol prn morphine Tomorrow's Labs & Rationales: bep to monitor K and Cr - on IV high dose diuretics ALEXIS JOHNSON,ENRIQUE 04/09/17 1451: Attending MD Review Statement Attending Statement Attending MD Statement: examined this patient, discuss w/resident/PA/OUTBOUND TELEMARKETER, agreed w/resident/PA/OUTBOUND TELEMARKETER, reviewed EMR data (avail), discussed with nursing, discussed with case mgmt Attending Assessment/Plan: 86-year-old male with past medical history of chronic right-sided heart failure with elevated PA pressures and A. fib on Coumadin who came in with severe bilateral lower extremity edema and stasis dermatitis. He was grossly volume overloaded on admission and is responding to IV Lasix. He's been watched off antibiotics as there is no evidence of cellulitis. Initially his INR was subtherapeutic but the ultrasound was negative for DVT and now his INR is therapeutic. He is complaining of right ankle joint pain. 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 The plan is to continue high dose IV Lasix 80 twice a day per cardiology and follow his renal function closely. Dose is Coumadin to keep his INR therapeutic at all times and follow bilateral lower extremities clinically.
--- NOTE | 2017-04-09 07:50 | PN- Student ---
Subjective Subjective: FOR TEACHING PURPOSES ONLY Source and reliability: Self-referred, seems reliable CC: "My legs are swollen and burning." Pt. is an 86 yo who was brought in due to leg swelling and pain. Pt. states that at rest his bilateral leg pain is a 0/10, which is improved since his admission. However, he still experiences a 9/10 right leg pain while ambulating. However, he noticed a new, acute pain in his lateral aspect of his ankle and the dorsal surface of his right foot while ambulating. He states he feels like his "ankle is being squeezed by a Boa constrictor." He states he is on tylenol for his pain , but is not sure if it's working because he immobilizes it to make it feel better. While resting, he is currently is in no apparent distress and states that he slept okay last night. @ 1330, the pt is stating he is having constant, 4/10, constricting, lateral ankle pain that travels 3 inches superiorly at rest. He states that the pain feels like his previous gout attacks. The pt. states that he takes 2 tabs of 0.6mg of colchine during a gout attack and 1 tab 0.6mg colchine and hour later. He states that this usually alleviates the pain. ROS: Complains of dry mouth. Denies CP, palpitations, dyspnea, abd pain, N/V/D. Objective Objective: PE: General: Cooperative and pleasant, in no apparent distress, affect is appropriate to situation Neuro: Alert and Oriented x3. Strength 4+ in dorsiflexion and plantarflexion. EENT: Hard of hearing CV: irregular heart beats with a HR of 53, asymptomatic. Pulm: Clear bilaterally. Does not use accessory muscles to breath. No wheezes, rhonchi, or rales GI: normal bowel sounds in all 4 quadrants. Non distended, nontender, no ascites present, no hepatomegaly : scrotal swelling has reduced LE: Bilateral lower leg erythema and edema present from the foot until the knee. Right lower leg reduced in size, but the right foot still has 4+ edema. DP 2+ left foot, unable to assess DP on the right because of tenderness. Walks with a walker and needs supervision. Derm: One inch fluid filled blister on the anterior aspect, below the knee of the right lower leg. Vital Signs Date Time Temp Pulse Resp B/P B/P Pulse O2 O2 Flow FiO2 Mean Ox Delivery Rate 04/09 1016 62 136/72 04/09 0659 97.8 60 18 136/70 97 04/08 2229 99.7 60 20 126/64 97 Room Air 04/08 2121 69 128/70 04/08 1454 98.1 68 20 110/60 97 04/08 0910 70 120/50 04/08 0645 97.9 77 20 100/70 96 Room Air 04/08 0059 99.6 58 20 134/60 96 Room Air 04/07 2300 98.5 69 18 141/65 04/07 2259 98.5 69 18 141/65 97 Room Air Room Air 04/07 2014 98.7 76 16 156/72 97 Room Air 04/07 1314 98.0 72 18 150/70 100 Room Air Last 24 Hours I&Os 04/09 1600 04/09 0800 04/09 0000 Intake Total 100 734 Output Total 077 811 5349 Balance -375 -200 -266 Intake, IV 14 Intake, Oral 100 720 Output, Urine 193 771 9930 Laboratory Tests 04/09/17 0630: Anion Gap 8, Estimated GFR 53 L, BUN/Creatinine Ratio 30.0 H, Uric Acid 8.1, PT 20.9 H, INR 2.00 H Microbiology Date/Time Procedure - Status Source Growth 04/07 1515 Blood Culture - RES BLOOD Doppler: No DVT, 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 Richardson saw the patient and feels that the pt's edema is reducing. Recommends continueing negative fluid balance as renal function allows , cleanse legs with soap and water, and compression stockings upon discharge. Cardiology Consult: ECHO EF=60%. December 2016, he gained 16 lbs as per his PCP Dr. Rodriguez. Previous ECHO from 2 years ago showed pulmonary HTn with PA systolic pressure of 37 and mild tricuspid regurge Assessment/Plan Assessment: Assesment: Pt. is a 86 yo MCM with a past history of Afib, SVT, chronic venous stasis, hyperlipidemia, HTN, DM, and pulmonary HTN with mild tricuspid regurg who inially presented with chronic, progressively worsening bilateral lower leg edema, erythema, and pain who is hospital stay day 3 presenting with sudden, acute, constant, constricting lateral right ankle pain. 1. Bilateral leg edema: the patient is trending positively. He does not experience anymore scrotal swelling, and his right lower leg has decreased in size. We will continue 80mg Furosemide IV BID and leg elevation to decrease swelling. His INR from 04/09/17 is 2.00, which is at therapeutic range. We will keep him on 5mg of warfarin and continue to order PT and INR to monitor his anticoagulation therapy. Wound care recommended washing the lower legs with soap and water. Also recommended the continuation of compression stockings at discharge. DDx: Chronic venous stasiss dermatitis: this patient has a 7 year history of chronic venous stasis. He stopped using compression stocking and decreased his warfarin, which may cause the lower extremities to pool and cause his symptoms. This is the highest ddx Lymphedema: is the abnormal accumulation of interstitial fluid and fibroadipose tissue. This diagnosis is possible and may be in conjunction with venous stasis dermatitis. Secondary lymphedema can occur due chronic lymphatic overload like in chronic venous insufficiency. Since this patient has a history of chronic venous insufficiency, this diagnosis is possible. HF due to atrial fibrillation: the pt's increase in pro-BNP at admission and EKG is indicative of afib. Arrhythmia causes stress on the heart, which may cause inefficient pumping of blood. If this patient has right sided heart failure, then this may cause overload in the systemic circulation causing symptoms of bilateral leg edema. Usually, edema would be symmetric, but due to his history of chronic venous stasis, he may have more narrowing of his blood vessels in his right leg. Since the patient decreased his warfarin thearpy, he can coagulate more readily, which contribute to more thrombus formation. Cabrera's cyst complication: popliteal cysts may enlarge and compress adjacent structure. Signs and symptoms include edema, erythema, and swelling and often resembles a DVT. 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 Which came first is unknown, but this can contribute to his symptoms. Cellulitis: With the patient presentation and his recent gardening activity x 1 week ago, cellulitis is possible. However, the patient is afebrile, denies chilld or sweats, WBC was within normal limits, and the blood cultures have been negative thus far. Therefore, the dx of cellulitis is lower on the ddx. DVT: Since this patient presents with asymmetric bilateral lower leg edema and has decreased his warfarin dose, he may have a possible DVT. HOwever, a doppler US was performed and the results came back negative. There this diagnosis is lower on the list. Erythromelalgia: is caused by arteriolar fibrosis and oclussion with platelet thrombi. Platelets are abnromally hyperaggregable and causes thrombocythemia. This condition can present with erythema, swelling, tenderness, and burning sensation just as the patient presented with on admission. However, this is a rare diagnosis and usually occurs in younger populations. Since this patient has a normal platelet count, this dx is low on the differential 2. Ankle Pain DDx Possible Acute gout attack: The patient experiencing a new, sudden onset of lateral, right ankle pain. He states that the pain is now constant and feels his previous gout attacks. Diuretic use can provoke gouty arthritis and he is currently on 80mg Furosemide IV BID. This may have precipated an acute gout attack. We will continue his allopurinol as prescribed and add colchicine 0.6mg TID. To diagnose this an acute gout attack, he would need synovial fluid analysis. This is not favorable because of his leg edema and we can introduce infection from the procedure. Therefore, the risk will outweigh the benefit for this patient. We will order an ankle Xray to check for tophi or erosions. However, the patient has chronic gout, so he may show tophi and erosions in the absence of an acute gout attack. Nonetheless, an Xray can help us determine if there is a different underlying pathology such as an effusion. 3. Atrial fibrillation: cardiology consult was obtained. Recommends the warfarin to reach therapeutic levels. Currently, his INR is 2.0 and we will keep him at 5mg of warfarin. We will continue to order PT/INR and monitor his anticoagulation. 4. HTN: his BP is stable on his cardiovascular medications and will continue to monitor. 5. DM: Novolog as per sliding scale. Pt. uses Metformin 1,000mg at home. 6. HL: Pt. is on atorvastatin and currently stable.
[2017-04-09 08:24] LABS: PT 20.9 SEC (9.4-12.5)
--- NOTE | 2017-04-09 09:01 | Discharge Summary ---
Visit Information Visit Dates Admission Date: 04/07/17 Discharge Date: 04/14/17 Hospital Course Course Attending Physician: ALEXIS JOHNSON,ERNIQUE Maier Primary Care Physician: Jenifer Rodriguez MD Consulting Request: Consulting Specialty: Cardiology Consulting Physician: Reason for Consult: Diuretic dosing Hospital Course: Patient is a 86-year-old male with past medical history significant for chronic venous insufficiency, atrial fibrillation (follows Dr. Schmidt), SVT, Type 2 diabetes (on metformin) came to the ER after being sent by Dr. Adler for progressive worsening of lower extremity edema requiring inpatient management Vitals and admission blood pressure 150/70, respiratory 18, pulse rate 72, temperature 98.0, oxygen saturation 100% on room air. Labs an admission WBC 7.6, hemoglobin 11.3, hematocrit 34.4, platelets 171, sodium 136, pressure 5.0, BUN 42, creatinine 1.3 Imaging on admission Chest x-ray There are ill-defined bilateral upper lobe opacities. An additional lateral projection can be obtained. Alternatively a dedicated CT scan of the chest can be obtained for better anatomic characterization of these findings. Chest CT 2 small groundglass opacities in the right upper lobe. The groundglass opacity can be followed up in 6 months as per 2017 Fleischner Society recommendations . The lungs are otherwise clear. Hospital course 1. Bilateral lower extremity edema secondary to mild pulmonary hypertension as demonstrative by his previous echocardiogram: Patient is admitted to general medical floor. DVT ruled out with negative lower extremity ultrasound. He was aggressively diuresed IV Lasix 80mg BID for lower extremity edema. His daily weights and I know so monitored. Wound consult was obtained who recommended to call or his blisters with Xeroform and gauze dressing. He will need compression stockings once his wounds are healed upon discharge. He was slowly transitioned to IV lasix 80mg once a day then to oral lasix 80mg. As he is having negative balance with oral 80mg lasix. He is discharged with oral lasix 80mg. Encouraged to elevated legs, continue wound care, compression stocking. 2. Right ankle pain: Patient has history of gout. He was continued on his home dose of allopurinol. X-ray of the ankle was obtained which showed circumferential soft tissue swelling and no evidence of joint effusion. He was started on colchicine during this hospital visit which was stopped at discharge. He is free from ankle pain at discharge. 3. Atrial fibrillation on anticoagulation: INR on admission was subtherapeutic. His Coumadin was dosed as per INR to maintain a therapeutic range between 2-3. 4. Diabetic mellitus type 2 : By mouth medications was held on admission and started on NovoLog sliding scale for close monitoring of blood sugars. As his creatinine is creaping up, please reconsider diabetic medications as metformin can cause acidosis. Currently discharging with metformin - his home dose. HbA1C - 6.8 in this admission. Ground glass opacities in Chest CT Suggestive of 2 small ground glass opacities that requires follow up as out patient. He was continued on his chest also medications including Lipitor metoprolol. Complications: none Allergies: Coded Allergies: No Known Allergies (04/07/17) Significant Procedures: chest x ray IMPRESSION: There are ill-defined bilateral upper lobe opacities. An additional lateral projection can be obtained. Alternatively a dedicated CT scan of the chest can be obtained for better anatomic characterization of these findings. Ankle x ray IMPRESSION: Circumferential soft tissue swelling. No acute osseous abnormality. venous doppler IMPRESSION: Normal triplex scan without evidence of deep venous thrombosis involving the lower extremity. Slightly limited evaluation of the calf veins. No definite DVT. Cabrera's cyst. chest CT IMPRESSION: 2 small groundglass opacities in the right upper lobe.. The groundglass opacity can be followed up in 6 months as per 2017 Fleischner Society recommendations . The lungs are otherwise clear. Pertinent Lab Results: Labs an admission WBC 7.6, hemoglobin 11.3, hematocrit 34.4, platelets 171, sodium 136, pressure 5.0, BUN 42, creatinine 1.3 Disposition Summary Disposition Principal Diagnosis: 1. Bilateral lower extremity edema Additional Diagnosis: 1. A fib 2. DM Discharge Disposition: short term rehabilitation Discharge Instructions General Discharge Information Code Status: Full Code Patient's Diet: Diabetic and heart healthy diet Patient's Activity: As tolerated Follow-Up Instructions/Appts: Please follow up with your PCP() in a week Please follow up with Dr. River in a week please follow up with your PCP regarding metformin and lasix dosing. Please follow up with renal function. Please follow up with INR and dose warfarin with a goal of INR 2-3. Keep Legs Elevated. Remove compression stockings every night. Medications at Discharge Discharge Medications: Stop taking the following medications: Furosemide (Lasix) 40 MG TABLET ORAL TWICE DAILY Continue taking these medications: Metformin HCl (Glucophage) 1,000 MG TABLET 1 Tablet ORAL DAILY Comments: INSULIN SLIDING SCALE USED WHILE IN HOSPITAL Potassium Chloride (Klor-Con) 20 MEQ PACKET 1.5 ORAL DAILY Comments: NOT GIVEN WHILE IN HOSPITAL Warfarin Sodium (Warfarin Sodium) 5 MG TABLET 1 Tablet ORAL DAILY Comments: Last Taken: 04/13/17 Time: 5PM Allopurinol (Allopurinol) 100 MG TABLET 1 Tablet ORAL DAILY Comments: Last Taken: 04/14/17 Time: 10AM Metoprolol Tartrate (Metoprolol Tartrate) 25 MG TABLET 1 Tablet ORAL TWICE DAILY Comments: Last Taken: 04/14/17 Time: 10AM Lisinopril (Lisinopril) 10 MG TABLET 1 Tablet ORAL DAILY Comments: NOT GIVEN WHILE IN HOSPITAL Atorvastatin Calcium (Lipitor) 20 MG TABLET 1 Tablet ORAL DAILY Comments: Last Taken: 04/13/17 Time: 5PM Start taking the following new medications: Furosemide (Lasix) 80 MG TABLET 1 Tablet ORAL DAILY Qty = 30 No Refills Comments: Last Taken: 04/14/17 Time: 10AM Copies To: ALEXIS JOHNSON,ELEANOR Strauss; CHERRI JOHNSON,JENIFER Villa Attending MD Review Statement Documenting Attending: TAMIKA GOMES M.D Other Findings: I have reviewed the discharge summary.
--- NOTE | 2017-04-09 09:22 | PN- Wound Care ---
Subjective Subjective: Patient's edema is markedly improved there is no further drainage his wounds are dramatically improved and now healed there are only 2 very small blisters over his right leg. He is complaining of significant right ankle pain. He is diuresed approximately 1500 mL. Objective Vital Signs and I&Os Vital Signs Result Date Time Pulse Ox 97 04/09 0659 B/P 136/70 04/09 0659 Temp 97.8 04/09 0659 Pulse 60 04/09 0659 Resp 18 04/09 0659 O2 Delivery Room Air 04/08 2229 O2 Flow Rate Room Air 04/07 2259 Intake & Output 04/09 0000 04/08 1600 04/08 0800 Intake Total 734 640 Output Total 1000 300 350 Balance -266 340 -350 Intake, IV 14 Intake, Oral 720 640 Output, Urine 1000 300 350 Patient 225 lb Weight Weight Reported by Patient Measurement Method Exam of both legs show extensive changes secondary to venous stasis and now healed venous stasis ulcers. There is residual scaling. He has significant discomfort with manipulation of his right ankle. There are 2 small blisters measuring approximately 1.5 x 0.5 cm over the right leg.; Extensive circumferential prior venous stasis ulcers are now healed Impression/Plan Impression/Plan Impression/Plan: 86-year-old gentleman who has venous insufficiency admitted with elevated BMP has improved with bedrest and diuresis. His wounds have healed except for 2 small residual blisters. Continue negative fluid balance as renal function allows. Aggressive cleansing of his legs with soap and water. 2 small blisters can be covered with Xeroform and gauze. Evaluate complaints of right ankle pain. He has elastic compression stockings which should be placed upon discharge now has his wounds are healed. Up in wound care center after discharge
--- NOTE | 2017-04-09 12:47 | Cons- Cardiology ---
General Information and HPI Consulting Request Date of Consult: 04/09/17 Requested By: ENRIQUE ESPINOZA MD Reason for Consult: Leg edema, history of atrial fibrillation Source of Information: patient, old records Exam Limitations: no limitations History of Present Illness: The patient is an 86-year-old gentleman with a past medical history of paroxysmal atrial fibrillation, hypertension, gout and diabetes mellitus. He as well has known pulmonary hypertension with an estimated PA systolic pressure of 37 and mild tricuspid regurgitation by an echocardiogram 2 years ago. The patient presents with significant worsening of lower extremity edema which has been chronic for several years. Of note, in December 2016, he was noted to have a weight gain of approximately 16 pounds by his primary care physician. Increase diuretics did at that time as it was felt he had significant worsening of lower extremity edema. The patient is followed in the wound care clinic for his lower extremity edema and cellulitis and was admitted due to progression. Currently, the patient denies symptoms of chest pains palpitations nor dyspnea while at rest or with physical activity. He is however overall sedentary Allergies/Medications Allergies: Coded Allergies: No Known Allergies (04/07/17) Home Med List: Allopurinol 100 MG TABLET 1 TAB PO DAILY GOUT (Reported) Atorvastatin Calcium (Lipitor) 20 MG TABLET 1 TAB PO DAILY HLD (Reported) Furosemide (Lasix) 40 MG TABLET 1 TAB PO BID LEG SWELLING (Reported) Lisinopril 10 MG TABLET 1 TAB PO DAILY HTN (Reported) Metformin HCl (Glucophage) 1,000 MG TABLET 1 TAB PO DAILY DM (Reported) Metoprolol Tartrate 25 MG TABLET 1 TAB PO BID SVT (Reported) Potassium Chloride (Klor-Con) 20 MEQ PACKET 1.5 PO DAILY CHF (Reported) Warfarin Sodium 5 MG TABLET 1 TAB PO DAILY A FIB (Reported) Current Medications: Current Medications Sig/Elliot Start time Last Medication Dose Route Stop Time Status Admin Acetaminophen 650 MG .STK-MED ONE 04/09 0152 DC PO 04/09 0153 Acetaminophen 650 MG .STK-MED ONE 04/08 1745 DC PO 04/08 174 Acetaminophen 650 MG Q8P PRN 04/07 2115 AC 04/09 PO 1031 Acetaminophen 1,000 MG Q8P PRN 04/07 2115 AC IV Allopurinol 100 MG DAILY 04/08 1000 AC 04/09 PO 1016 Atorvastatin Calcium 20 MG 1700 04/08 1700 AC 04/08 PO 1651 Furosemide 40 MG ONCE ONE 04/08 1630 DC 04/08 IV 04/08 1631 1651 Furosemide 40 MG DAILY 04/08 1000 AC 04/09 IV 1016 Insulin Aspart 0 TIDAC 04/08 0800 AC 04/09 SC 1232 Metoprolol Tartrate 25 MG BID 04/07 2200 AC 04/09 PO 1016 Oxycodone HCl 10 MG Q8P PRN 04/07 2115 AC PO Patient Medication 1 ED .STK-MED ONE 04/08 1335 DC Teaching ED 04/08 1336 Warfarin Sodium 5 MG COUMADIN 1700 ONE 04/09 1700 AC PO 04/09 1701 Warfarin Sodium 5 MG COUMADIN 1700 04/08 1700 DC 04/08 PO 04/08 1701 1651 Review of Systems Review of Systems: The review of systems is negative for chest pains, palpitations nor lightheadedness. The remainder of the 14 point review of systems is noncontributory with the exception of above. Past History Travel History Traveled to [place] past 21 day No Medical History Blood Transfusion Hx: No Neurological: NONE EENT: [place] Cardiovascular: AFIB, SVT Respiratory: NONE Gastrointestinal: NONE Hepatic: NONE Renal: NONE Musculoskeletal: NONE Psychiatric: NONE Endocrine: diabetes Blood Disorders: NONE Cancer(s): NONE Surgical History Surgical History: non-contributory Psychosocial History Where Do You Live? Home Who Do You Live With? spouse Services at Home: None Smoking Status: Former Smoker ETOH Use: occasional use Illicit Drug Use: denies illicit drug use Functional Ability ADLs Independent: dressing, eating, toileting, bathing. Ambulation: independent IADLs Independent: shopping, housework, finances, food prep, telephone, transportation , medication admin. ECHO Results (as available) EF% 60 Exam & Diagnostic Data Vital Signs and I&O Vital Signs Date Time Temp Pulse Resp B/P B/P Pulse O2 O2 Flow FiO2 Mean Ox Delivery Rate 04/09 1016 62 136/72 04/09 0659 97.8 60 18 136/70 97 04/08 2229 99.7 60 20 126/64 97 Room Air 04/08 2121 69 128/70 04/08 1454 98.1 68 20 110/60 97 Intake & Output 04/09 1600 04/09 0804/09 0000 04/08 1600 04/08 0804/08 0000 Intake Total 100 734 640 Output Total 725 907 6652 300 350 800 Balance -200 -200 -266 340 -350 -800 Intake, IV 14 Intake, Oral 100 720 640 Output, Urine 941 674 4982 300 350 800 Patient 225 lb Weight Weight Reported by Patient Measurement Method Physical Exam: General: Nontoxic, no apparent distress. HEENT: Sclera and conjunctiva within normal limits, without xanthelasmas. Neck: Carotids 2+ without bruits. Respiratory: Clear to auscultation, air movement is good, without accessory respiratory muscle use. Heart: Regular rate and rhythm, 2/6 systolic ejection murmur at left sternal border, without JVD. Abdomen: Soft, nontender, no masses, normoactive bowel sounds. Extremities: Bilateral nonpitting lower extremity edema with significant erythema and weeping. Neuro: Nonfocal exam, strength, 5 out of 5 Skin: Significant erythema and weeping in both lower extremities as above Psych: Mood and affect: Normal Labs/Robin Results: Laboratory Tests 04/09 04/08 04/07 04/07 0630 0619 1440 1406 Chemistry Sodium (137 - 145 mmol/L) 137 138 136 L Potassium (3.5 - 5.1 mmol/L) 4.3 4.6 5.0 Chloride (98 - 107 mmol/L) 102 103 103 Carbon Dioxide (22 - 30 mmol/L) 27 25 23 Anion Gap (5 - 16) 8 10 10 BUN (9 - 20 mg/dL) 39 H 36 H 42 H Creatinine (0.7 - 1.2 mg/dL) 1.3 H 1.3 H 1.3 H Estimated GFR (>60 ml/min) 53 L 53 L 53 L BUN/Creatinine Ratio (7 - 25 %) 30.0 H 27.7 H 32.3 H Glucose (65 - 99 mg/dL) 124 H Hemoglobin A1c (4.2 - 5.8 %) 6.8 H Uric Acid (3.5 - 8.5 mg/dL) 8.1 Calcium (8.4 - 10.2 mg/dL) 8.8 Magnesium (1.6 - 2.3 mg/dL) 2.2 Total Bilirubin (0.2 - 1.3 mg/dL) 0.9 AST (17 - 59 U/L) 31 ALT (21 - 72 U/L) 50 Alkaline Phosphatase (< 127 U/L) 87 Troponin I (<0.11 ng/ml) 0.02 [id number] Pept (<125 pg/mL) 4070 H Total Protein (6.3 - 8.2 g/dL) 6.5 Albumin (3.5 - 5.0 g/dL) 3.5 Globulin (1.9 - 4.2 gm/dL) 3.0 Albumin/Globulin Ratio (1.1 - 2.2 %) 1.2 Coagulation PT (9.4 - 12.5 SEC) 20.9 H 15.3 H 14.5 H INR (0.90 - 1.17) 2.00 H 1.46 H 1.39 H Hematology WBC (4.8 - 10.8 /CUMM) 7.6 RBC (4.70 - 6.10 /CUMM) 3.63 L Hgb (14.0 - 18.0 G/DL) 11.3 L Hct (42 - 52 %) 34.4 L MCV (80.0 - 94.0 FL) 94.7 H MCH (27.0 - 31.0 PG) 31.0 RDW (11.5 - 14.5 %) 13.8 Plt Count (130 - 400 /CUMM) 171 MPV (7.4 - 10.4 FL) 9.0 Gran % (42.2 - 75.2 %) 79.2 H Lymphocytes % (20.5 - 51.1 %) 12.2 L Monocytes % (1.7 - 9.3 %) 7.1 Eosinophils % (0 - 5 %) 1.1 Basophils % (0.0 - 2.0 %) 0.4 Absolute Granulocytes (1.4 - 6.5 /CUMM) 6.0 Absolute Lymphocytes (1.2 - 3.4 /CUMM) 0.9 L Absolute Monocytes (0.10 - 0.60 /CUMM) 0.5 Absolute Eosinophils (0.0 - 0.7 /CUMM) 0.1 Absolute Basophils (0.0 - 0.2 /CUMM) 0 PUBS MCHC (33.0 - 37.0 G/DL) 32.8 L Assessment/Plan Assessment/Plan 86-year-old gentleman with a past medical history of paroxysmal atrial fibrillation, hypertension, gout and diabetes mellitus. He as well has known pulmonary hypertension with an estimated PA systolic pressure of 37 and mild tricuspid regurgitation by an echocardiogram 2 years ago. The patient presents with significant worsening of lower extremity edema which has been chronic for several years. Lower extremity edema: The patient has both pitting and nonpitting lower extremity edema has been chronic. There is acute worsening of the same including cellulitic changes. At this time, we will attempt further diuresis with IV Lasix and may consider increasing the regimen to 80 mg IV twice a day. There were likely as well be a need for chronic lymphedema therapy and compression stockings once skin breakdown is addressed. A previous echocardiogram demonstrated mild pulmonary hypertension and overall preserved LV systolic function. A combination of venous insufficiency and elevated pulmonary pressures may be the etiology. Pulmonary emboli and DVT should be considered as possible etiologies for acute worsening. The patient is on chronic anticoagulation; however, has had subtherapeutic levels noted. No DVT was seen on the current admission ultrasound. Consideration for switching to a direct oral anticoagulant may be given. Hypertension: Stable, we'll continue to monitor closely with increased diuresis. Paroxysmal atrial fibrillation: The patient has been stable until a non-anticoagulation with Coumadin. A target INR between 2 and 3 should be sought if the patient is not switched to a direct oral anticoagulant.. Thank you for allowing us to participate in the care of your patient. Please do not hesitate to contact us further with any questions. Sincerely, Cody Hurtado MD [facility] Consult Acknowledgment - Thank you for your consult request.
--- NOTE | 2017-04-09 14:25 | Patient Discharge Instructions ---
Discharge Instructions General Discharge Information You were seen/treated for: Bilateral lower extremity edema Stasis dermatitis Gout flare Special Instructions: Please follow up with your PCP() in a week Please follow up with Dr. River in a week please follow up with your PCP regarding metformin and lasix dosing. Please follow up with renal function. Please follow up with INR and dose warfarin with a goal of INR 2-3. Diet Continue normal diet: No Recommended Diet: Diabetic, Heart Healthy Activity Activity Self Limited: Yes Acute Coronary Syndrome Inclusion Criteria At DC or during hospital stay patient has or had the following: ACS DIAGNOSIS No Discharge Core Measures Meds if any: Prescribed or Continued at Discharge Meds if any: NOT Prescribed or Continued at Discharge Congestive Heart Failure Inclusion Criteria At DC or during hospital stay patient has or had the following: CHF DIAGNOSIS No Discharge Core Measures Meds if any: Prescribed or Continued at Discharge Meds if any: NOT Prescribed or Continued at Discharge Cerebrovascular accident Inclusion Criteria At DC or during hospital stay patient has or had the following: CVA/TIA Diagnosis No Discharge Core Measures Meds if any: Prescribed or Continued at Discharge Meds if any: NOT Prescribed or Continued at Discharge Venous thromboembolism Inclusion Criteria VTE Diagnosis No VTE Type NONE VTE Confirmed by (Test) NONE Discharge Core Measures - Per Current guidelines, there needs to be overlap - treatment for the first 5 days of Warfarin therapy. - If discharged on Warfarin prior to 5 days of - overlap therapy, the patient will need to be - assessed for post discharge needs including - *Post discharge parental anticoagulation - *Warfarin and/or parental anticoagulation education - *Follow up date to check INR post discharge At least 5 days overlap therapy as Inpatient No Meds if any: Prescribed or Continued at Discharge Note: Overlap Therapy is Warfarin and Anticoagulant Meds if any: NOT Prescribed or Continued at Discharge
[2017-04-09 15:15] VITALS: BP 122/68
--- NOTE | 2017-04-09 15:32 | RADIOLOGY REPORT ---
EXAMINATION: XR ANKLE, RIGHT CLINICAL INFORMATION: Right ankle pain and tenderness. History of gout. COMPARISON: None TECHNIQUE: AP, lateral, and mortise views of the right ankle. FINDINGS: Circumferential soft tissue swelling. No ankle joint effusion. No acute fracture or dislocation. The ankle mortise is congruent. No erosive changes. IMPRESSION: Circumferential soft tissue swelling. No acute osseous abnormality.
[2017-04-09 22:43] VITALS: BP 122/60
[2017-04-10 07:06] VITALS: BP 130/64
--- NOTE | 2017-04-10 08:08 | PN- Housestaff ---
MARY JOHNSON,GOYO 04/10/17 0808: Subjective Follow-up For: stasis dermatitis bilateral lower extremity edema Complaints: no complaints Subjective: I followed up and examined the patient today. He is resting comfortably in bed, with both his legs raised over pillows, it does not offer any complaints, vitals are stable, no overnight issues. Review of Systems Constitutional: Reports: no symptoms. Objective Last 24 Hrs of Vital Signs/I&O Vital Signs Date Time Temp Pulse Resp B/P B/P Pulse O2 O2 Flow FiO2 Mean Ox Delivery Rate 04/10 0706 97.5 64 20 130/64 96 Room Air 04/09 2243 98.7 63 19 122/60 96 Room Air 04/09 2103 78 130/70 04/09 1750 Room Air Room Air 04/09 1515 98.0 56 18 122/68 96 Room Air 04/09 1016 62 136/72 Intake & Output 04/10 1600 04/10 0800 04/10 0000 Intake Total 240 740 Output Total 275 1700 Balance -35 -960 Intake, IV 20 Intake, Oral 240 720 Output, Urine 275 1700 Patient 104.326 kg Weight Physical Exam General Appearance: Alert, Oriented X3, Cooperative, No Acute Distress, OBESE Other Physical Findings: Skin: thick scaly skin over b/l legs, erythematous wound in the right lower extremity. mild erythema over the left leg, chronic fungal infection over nails HEENT: Atraumatic, PERRLA, EOMI Neck: Supple Cardiovascular: Normal S1, Normal S2 Lungs: Clear to Auscultation, Normal Air Movement Abdomen: Normal Bowel Sounds, Soft, No Tenderness Neurological: grossly intact Current Medications: Current Medications Sig/Elliot Start time Last Medication Dose Route Stop Time Status Admin Acetaminophen 650 MG .STK-MED ONE 04/09 1917 DC PO 04/09 1918 Acetaminophen 650 MG .STK-MED ONE 04/09 1030 DC PO 04/09 103 Acetaminophen 650 MG Q8P PRN 04/07 2115 AC 04/10 PO 0242 Acetaminophen 1,000 MG Q8P PRN 04/07 2115 AC IV Allopurinol 100 MG DAILY 04/08 1000 AC 04/09 PO 1016 Atorvastatin Calcium 20 MG 1700 04/08 1700 AC 04/09 PO 1629 Colchicine 600 MCG BID 04/09 1353 AC 04/09 PO 2103 Furosemide 80 MG 7:30 AM, & 4:30 PM 04/09 1630 AC 04/09 IV 1626 Furosemide 40 MG DAILY 04/08 1000 DC 04/09 IV 1016 Insulin Aspart 0 TIDAC 04/08 0800 AC 04/09 SC 1232 Metoprolol Tartrate 25 MG BID 04/07 2200 AC 04/09 PO 210 Oxycodone HCl 10 MG Q8P PRN 04/07 2115 AC PO Patient Medication 1 ED .STK-MED ONE 04/09 1411 DC Teaching ED 04/09 1412 Warfarin Sodium 5 MG COUMADIN 1700 ONE 04/09 1700 DC 04/09 PO 04/09 1701 1630 Last 24 Hrs of Lab/Robin Results Last 24 Hrs of Labs/Mics: Laboratory Tests 04/10/17 0640: Sodium Pending, Potassium Pending, Chloride Pending, Carbon Dioxide Pending, Anion Gap Pending, BUN Pending, Creatinine Pending, BUN/Creatinine Ratio Pending , PT Pending, INR Pending Assessment/Plan Assessment: 86-year-old male with PMH of A. fib, SVT, diabetes was sent to ED by for progressive worsening of bilateral leg swelling. Patient is mobile at baseline. Although warm and mildly tender to touch - no white count and leukocytosis --> less likely superadded cellulitis. We did a Doppler ultrasound to rule out DVT given subtherapeutic INR and not very mobile - negative. Plan Admitted to general medicine floor for: Bilateral lower extremity edema - suspected cellulitis Long-standing history of chronic venous insufficiency resulting in bilateral lower extremity edema. He has been following wound care center with recent change in dressings and Joss bandages from stockings, recent increase in Lasix dose to 120 mg from 80 mg. Despite any improvement there is progressive worsening of the condition with increased pain/erythema/warmth concerning superadded infection. Although he had clustered weeping wounds, he remained afebrile without any white count, so less likely of an infection. * IV Lasix 80 mg twice a day to continue today, as his Cr is not worsening * Watching off antibiotics * Encourage leg elevation, local wound care. * Closely Monitor creatinine. * Pain control with oxycodone 10 mg every 8 when necessary, IV Tylenol * Wound care consult * Physical therapy suggested STR. Rate controlled Atrial fibrillation Patient reports he was not in A. fib 6 months ago. He follows Dr. River ( hot tamale man) for SVT and A. fib. INR is 1.39 at admission * Rate control with metoprolol tartrate 25 twice a day * anti-coagulation with warfarin - goal INR 2-3 -->2.0 -->2.56 today, so dosed only 4 mg Coumadin today * CHADVasc score of 3 Right Ankle pain Patient had a history of gout, on allopurinol 100mg at home, colchicine for flares. He reports significant pain in his right heel, which apparently similar to his gouty attacks. * Xray right ankle shows soft tissue sweeling without any crystals. * started on colchicine 0.6mg BID for now, which seems to be helping, will continue Ground glass opacities in Chest CT Suggestive of 2 small ground glass opacities that requires follow up as out patient. Chronic and stable conditions Diabetes mellitus: Accu-Cheks and insulin sliding scale (on metformin at home) Gout: Allopurinol 100 mg daily DVT prophylaxis * On warfarin CODE STATUS * Full code Problem List: 1. Lymphedema of both lower extremities 2. Atrial fibrillation with normal ventricular rate 3. Gout Pain Ratin Pain Location: b/l legs Pain Goal: Pain 4 or less Pain Plan: prn Tomorrow's Labs & Rationales: bep to monitor K and Cr - on IV high dose diuretics SHARON MARTINEZ 04/10/17 1106: Attending MD Review Statement Attending Statement Attending MD Statement: examined this patient, discuss w/resident/PA/PSYCHOLOGY TECHNICIAN, agreed w/resident/PA/PSYCHOLOGY TECHNICIAN, discussed with family, reviewed EMR data (avail), discussed with nursing, discussed with case mgmt, reviewed images, amended to note Attending Assessment/Plan: 86-year-old male with past medical history of chronic right-sided heart failure with elevated PA pressures and A. fib on Coumadin who came in with severe bilateral lower extremity edema and stasis dermatitis. He was grossly volume overloaded on admission and is responding to IV Lasix. He's been watched off antibiotics as there is no evidence of cellulitis. Initially his INR was subtherapeutic but the ultrasound was negative for DVT and now his INR is therapeutic. He is complaining of right ankle joint pain. 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 The plan is to continue high dose IV Lasix 80 twice a day per cardiology and follow his renal function closely. Dose is Coumadin to keep his INR therapeutic at all times and follow bilateral lower extremities clinically. Cont current care.
[2017-04-10 08:37] LABS: PT 26.6 SEC (9.4-12.5)
[2017-04-10 14:29] VITALS: BP 122/60
--- NOTE | 2017-04-10 14:34 | PN- Cardiology ---
Subjective Subjective: Clinically stable with no new issues. Edema improving. Objective Vital Signs and I&Os Vital Signs Date Time Temp Pulse Resp B/P B/P Pulse O2 O2 Flow FiO2 Mean Ox Delivery Rate 04/10 1429 97.2 69 20 122/60 97 Room Air 04/10 0915 64 130/64 04/10 0706 97.5 64 20 130/64 96 Room Air 04/09 2243 98.7 63 19 122/60 96 Room Air 04/09 2103 78 130/70 04/09 1750 Room Air Room Air 04/09 1515 98.0 56 18 122/68 96 Room Air Intake & Output 04/10 1600 04/10 0800 04/10 0000 04/09 1600 04/09 0800 04/09 0000 Intake Total 240 740 30 100 734 Output Total 826 159 0825 034 213 7404 Balance -800 -35 -960 -665 -200 -266 Intake, IV 20 20 14 Intake, Oral 240 720 10 100 720 Output, Urine 438 594 0297 751 933 1605 Patient 230 lb 230 lb Weight Weight Standing Scale Measurement Method Current Medications: Current Medications Sig/Elliot Start time Last Medication Dose Route Stop Time Status Admin Acetaminophen 650 MG .STK-MED ONE 04/10 012 DC PO 04/10 012 Acetaminophen 650 MG .STK-MED ONE 04/09 1917 DC PO 04/09 1918 Acetaminophen 650 MG Q8P PRN 04/07 2115 04/10 PO 111 Acetaminophen 1,000 MG Q8P PRN 04/07 2115 IV Allopurinol 100 MG DAILY 04/08 1000 04/10 PO 0915 Atorvastatin Calcium 20 MG 1700 04/08 1700 AC 04/09 PO 1629 Colchicine 600 MCG BID 04/09 1353 04/10 PO 0914 Furosemide 80 MG 7:30 AM, & 4:30 PM 04/09 1630 04/10 IV 0915 Insulin Aspart 0 TIDAC 04/08 0800 04/09 SC 1232 Metoprolol Tartrate 25 MG BID 04/07 220 AC 04/10 PO 0915 Oxycodone HCl 10 MG Q8P PRN 04/07 2115 AC PO Warfarin Sodium 4 MG COUMADIN 17004/10 1700 AC PO 04/10 1701 Warfarin Sodium 5 MG COUMADIN 17004/09 1700 DC 04/09 PO 04/09 1701 1630 Results Last 48 Hrs of Labs/Mics: Laboratory Tests 04/10/17 0640: Anion Gap 8, Estimated GFR 48 L, BUN/Creatinine Ratio 27.1 H, PT 26.6 H, INR 2.56 H 04/09/17 0630: Anion Gap 8, Estimated GFR 53 L, BUN/Creatinine Ratio 30.0 H, Uric Acid 8.1, PT 20.9 H, INR 2.00 H
[2017-04-10 21:00] VITALS: BP 126/58
--- NOTE | 2017-04-10 23:59 | NUR ---
AT APPROX 2099 PATIENT HEART RATE WAS 46. (LOPRESSOR WAS GIVEN AT 2009, WHEN HEART RATE WAS 71 AT THAT TIME. MD GRAHAM MADE AWARE. WILL CONTINUE TO CLOSELY MONITOR.
[2017-04-11 06:55] VITALS: BP 120/70
--- NOTE | 2017-04-11 06:59 | PN- Student ---
Subjective Subjective: Source and Reliability: Self-referred, seems reliable CC: "My legs are swollen and burning." Pt. is an 86 y.o MCM with a history of chronic venous stasis, afib, SVT, HTN, HL , pulmonary HTN, and gout who is day #4 of admission for bilateral leg edema. The patient is pleasant, cooperative, and under no apparent distress. He states that both his legs feel well controlled on tylenol and experiences a 0/10 pain. On Wednesday, he experienced a 9/10 constant right lateral ankle pain. He was given 0.6mg colchine and he states his pain has gotten better. Today, he reports of 2/ 10 constant, localized ankle pain at rest, which worsens during ambulation. He would like to continue colchicine because it seems to alleviate it. In addition, the patient is concerned about his BM. His last BM was 04/06. He stated he had brief, cramp pain in his LLQ, which felt he needed to make a BM, but went away. He would like to know if he can drink his probiotic. He thought the pain is due to his pancreas and was worried, but I educated him on the location of his pancreas and its function is to help digest fats and carbohydrates. He states that he is good at controlling his sugar, but he loves eating fats. I educated him on decreasing his fat intake due to his history of hyperlipidemia. Pt states his will be coming this afternoon to bring his compression stockings and to take back his car. He said that Dr. Richardson advised him to put on the compression stockings as soon as he gets home and would like assitance to put them on. ROS: Denies CP, palpitations, dyspnea, cough, fever, nausea, vomiting, and dysuria. Objective Objective: PE: General: Calm, cooperative, in no apparent distress, nondiaphoretic, affect is appropriate to situation. Neuro: Alert and Oriented x 3. Muscle strength 5/5 in bilateral dorsiflexion and plantarflexion. Cardiovascular: S1 and S2 heard. HR 54. Pulmonary: Lung sounds clear bilaterally. No rhonchi, wheezes, or rales GI: Normal bowel sounds in all 4 quadrants, nondistended, nontender. : no scrotal edema. Extremities: Diffuse, 2+ bilateral lower leg edema that starts from the feet and extends to the knees. Clean ulceration in both lower legs. 4+ pitting edema in the right foot. 2+ in the left foot. Tender, localized pain on the right lateral ankle. Fungus on the left dorsal metatarsal surface and toe, left dorsal metatarsal surface Current Medications Sig/Elliot Start time Last Medication Dose Route Stop Time Status Admin Acetaminophen 650 MG .STK-MED ONE 04/10 2009 DC PO 04/10 2010 Acetaminophen 650 MG .STK-MED ONE 04/10 1108 DC PO 04/10 1109 Acetaminophen 650 MG Q8P PRN 04/07 211 AC 04/10 PO 2009 Acetaminophen 1,000 MG Q8P PRN 04/07 211 AC IV Allopurinol 100 MG DAILY 04/08 1000 AC 04/10 PO 0915 Atorvastatin Calcium 20 MG 1700 04/08 1700 AC 04/10 PO 1659 Colchicine 600 MCG BID 04/09 1353 AC 04/10 PO 2007 Furosemide 80 MG 7:30 AM, & 4:30 PM 04/09 1630 AC 04/10 IV 1659 Insulin Aspart 0 TIDAC 04/08 0800 AC 04/09 SC 1232 Metoprolol Tartrate 25 MG BID 04/07 2200 AC 04/10 PO 2009 Oxycodone HCl 10 MG Q8P PRN 04/07 211 AC PO Polyethylene Glycol 17 GM DAILY PRN 04/10 1700 AC PO Senna/Docusate Sodium 1 TAB BID PRN 04/10 1700 AC PO Warfarin Sodium 4 MG COUMADIN 1700 ONE 04/10 1700 DC 04/10 PO 04/10 1701 1659 Vital Signs Date Time Temp Pulse Resp B/P B/P Pulse O2 O2 Flow FiO2 Mean Ox Delivery Rate 04/11 0655 97.7 68 20 120/70 97 Room Air 04/10 2100 98.2 46 20 126/58 96 Room Air 04/10 2009 71 122/60 04/10 1600 Room Air 04/10 1429 97.2 69 20 122/60 97 Room Air 04/10 0915 64 130/64 04/10 0706 97.5 64 20 130/64 96 Room Air 04/09 2243 98.7 63 19 122/60 96 Room Air 04/09 2103 78 130/70 04/09 1750 Room Air Room Air 04/09 1515 98.0 56 18 122/68 96 Room Air 04/09 1016 62 136/72 04/09 0659 97.8 60 18 136/70 97 04/08 2229 99.7 60 20 126/64 97 Room Air 04/08 2121 69 128/70 04/08 1454 98.1 68 20 110/60 97 04/08 0910 70 120/50 04/08 0645 97.9 77 20 100/70 96 Room Air 04/08 0059 99.6 58 20 134/60 96 Room Air 04/07 2300 98.5 69 18 141/65 04/07 2259 98.5 69 18 141/65 97 Room Air Room Air 04/07 2014 98.7 76 16 156/72 97 Room Air 04/07 1314 98.0 72 18 150/70 100 Room Air Last 24 Hours I&Os 04/11 0800 04/11 0000 04/10 1600 Intake Total 240 600 80 Output Total 300 1250 1100 Balance -60 -650 -1020 Intake, IV 20 Intake, Oral 240 600 60 Output, Urine 300 1250 1100 Microbiology Date/Time Procedure - Status Source Growth 04/07 1515 Blood Culture - RES BLOOD Orders Procedure Date/time Status PROTHROMBIN TIME 04/11 0600 Active BASIC ELECTROLYTES PLUS BUN&CR 04/11 0600 Active PROTHROMBIN TIME 04/10 0600 Complete BASIC ELECTROLYTES PLUS BUN&CR 04/10 0600 Complete Therapeutic Activities 04/10 UNK Complete Therapeutic Exercise 04/10 UNK Complete Neuromuscular Re-ed 04/10 UNK Complete Gait Training 04/10 UNK Complete Weight 04/09 1608 Active URIC ACID 04/09 0630 Complete PROTHROMBIN TIME 04/09 0600 Complete BASIC ELECTROLYTES PLUS BUN&CR 04/09 0600 Complete PT Evaluate & Treat 04/09 UNK Active Therapeutic Activities 04/09 UN Complete PT EVAL MOD COMPLEX 30 MIN 04/09 UNK Complete Neuromuscular Re-ed 04/09 UNK Complete Gait Training 04/09 UNK Complete Lab Add-on Test 04/09 UNK Active Change service to 04/08 0817 Active Lab Add-on Test 04/08 UNK Active PHARMACY COMMUNICATION FORM 04/08 UNK Active GLYCOSYLATED HGB 04/07 1406 Complete 04/10/17 BUN @ 38 mg/dL, Cr 1.4 mg/dL, GFR 48 ml/min, PT=26.6, INR 2.56; Cardiology consult: clinical stable, edema is improving Assessment/Plan Assessment: Assessment: Pt. is an 86 y.o MCM with a history of chronic venous stasis, afib, SVT, HTN, HL , pulmonary HTN, DM, and gout who is day #4 of admission for bilateral leg edema , erythema, and pain, which is improving with leg elevation and Lasix 80mg IV BID. He also experienced right ankle pain, which is improved on 0.6 mg of colchicine. 1. Bilateral Leg Edema: Pt.'s bilateral leg edema is improving on Lasix 80mg IV BID and leg elevation. His GFR is at 48 ml/min and his BUN and Cr slightly increased to 38mg/dL and 1.4 mg/dL respectively. HIs CO2 is also trending upward from 28 to 31. He is also had 6.5lb increase since yesterday. This may be due to fluid retention, but it is also possible that the scale needs to be recalibrated. We will need to monitor his kidney function as Lasix can cause nephrotoxicity. 2. DVT prophylaxis: He is on warfarin 5mg, PT=26.6 and INR 2.56. He is in therapeutic levels. 3. Ankle Pain: Possible Acute gout attack: On Wednesday, the pt experienced a new, sudden onset of lateral, right ankle pain. Diuretic use can provoke gouty arthritis and he is currently on 80mg Furosemide IV BID. This may have precipated an acute gout attack. We will continue his allopurinol as prescribed and add colchicine 0.6mg TID. To diagnose this an acute gout attack, he would need synovial fluid analysis. This is not favorable because of his leg edema and we can introduce infection from the procedure. Therefore, the risk will outweigh the benefit for this patient. Xray was performed and it did not show any erosions or effusions. Today, his pain is well controlled at a 2/10 on colchicine 0.6mg and the pt. would like to continue colchicine. 3. Atrial fibrillation: cardiology consult was obtained and states that the pt is in stable condition. Recommends the warfarin to reach therapeutic levels. Currently, his INR is 2.0 and we will keep him at 5mg of warfarin. We will continue to order PT/INR and monitor his anticoagulation. 4. HTN: his BP is stable on his cardiovascular medications and will continue to monitor. 5. DM: Accuchecks and Novolog as per sliding scale. Pt. uses Metformin 1,000mg at home. 6. Constipation: The patient has not had BM since Wednesday. Miralax and Colace has been ordered to help alleviate symptoms.
[2017-04-11 07:36] LABS: PT 28.7 SEC (9.4-12.5)
--- NOTE | 2017-04-11 07:37 | PN- Housestaff ---
FATMATA JOHNSON,CHELITA 04/11/17 0734: Subjective Follow-up For: Bilateral lower extremity edema stasis dermatitis Subjective: I saw and examined the patient today morning He is doing well, still reports pain - but much improved. Review of Systems Constitutional: Reports: see HPI. Comments: ROS negative except the above Objective Last 24 Hrs of Vital Signs/I&O Vital Signs Date Time Temp Pulse Resp B/P B/P Pulse O2 O2 Flow FiO2 Mean Ox Delivery Rate 04/11 0655 97.7 68 20 120/70 97 Room Air 04/10 2100 98.2 46 20 126/58 96 Room Air 04/10 2009 71 122/60 04/10 1600 Room Air 04/10 1429 97.2 69 20 122/60 97 Room Air 04/10 0915 64 130/64 Intake & Output 04/11 0800 04/11 0000 04/10 1600 Intake Total 240 600 80 Output Total 300 1250 1100 Balance -60 -650 -1020 Intake, IV 20 Intake, Oral 240 600 60 Output, Urine 300 1250 1100 Patient 107.19 kg Weight Physical Exam General Appearance: Alert, Oriented X3, Cooperative Skin: No Rashes, No Breakdown HEENT: Atraumatic, PERRLA, EOMI Neck: Supple Cardiovascular: Normal S1, Normal S2 Lungs: Clear to Auscultation, Normal Air Movement Abdomen: Normal Bowel Sounds, Soft, No Tenderness Neurological: Normal Tone, Sensation Intact Extremities: No Clubbing, No Cyanosis, 3+ pitting edema present Current Medications: Current Medications Sig/Elliot Start time Last Medication Dose Route Stop Time Status Admin Acetaminophen 650 MG Q8P PRN 04/07 2115 AC 04/10 PO 2008 Acetaminophen 1,000 MG Q8P PRN 04/07 2115 AC IV Allopurinol 100 MG DAILY 04/08 1000 AC 04/11 PO 09 Atorvastatin Calcium 20 MG 1700 04/08 1700 AC 04/11 PO 165 Colchicine 600 MCG BID 04/09 1353 AC 04/11 PO 2103 Docusate Sodium 100 MG BID 04/11 1000 AC 04/11 PO 2103 Furosemide 80 MG 7:30 AM, & 4:30 PM 04/09 1630 AC 04/11 IV 1655 Insulin Aspart 0 TIDAC 04/08 0800 AC 04/11 SC 0814 Metoprolol Tartrate 25 MG BID 04/07 220 AC 04/11 PO 2104 Oxycodone HCl 10 MG Q8P PRN 04/07 2115 AC PO Polyethylene Glycol 17 GM DAILY 04/11 1000 AC 04/11 PO 0909 Polyethylene Glycol 17 GM DAILY PRN 04/10 1700 DC PO 04/11 0959 Potassium Chloride 40 MEQ ONCE ONE 04/11 1130 DC 04/11 PO 04/11 1131 1309 Senna/Docusate Sodium 1 TAB BID PRN 04/10 1700 DC PO Warfarin Sodium 3 MG COUMADIN 1700 ONE 04/11 1700 DC 04/11 PO 04/11 1701 1655 Last 24 Hrs of Lab/Robin Results Last 24 Hrs of Labs/Mics: Laboratory Tests 04/11/17 0635: Anion Gap 7, Estimated GFR 48 L, BUN/Creatinine Ratio 28.6 H, PT 28.7 H, INR 2.76 H Assessment/Plan Assessment: 86-year-old male with PMH of A. fib, SVT, diabetes was sent to ED by for progressive worsening of bilateral leg swelling. Patient is mobile at baseline. Although warm and mildly tender to touch - no white count and leukocytosis --> less likely superadded cellulitis. We did a Doppler ultrasound to rule out DVT given subtherapeutic INR and not very mobile - negative. Plan Admitted to general medicine floor for: Bilateral lower extremity edema Long-standing history of chronic venous insufficiency resulting in bilateral lower extremity edema. He has been following wound care center with recent change in dressings and Joss bandages from stockings, recent increase in Lasix dose to 120 mg from 80 mg. Despite any improvement there is progressive worsening of the condition with increased pain/erythema/warmth concerning superadded infection. Although he had crusting, weeping wounds, he remained afebrile without any white count, so less likely of an infection. * IV Lasix 80 mg twice a day to continue today, Cr 1.4 today * Most probably we will convert to oral lasix tomorrow. * Watching off antibiotics * Encourage leg elevation, local wound care. * Closely Monitor creatinine. * Pain control with oxycodone 10 mg every 8 when necessary, IV Tylenol * Wound care consult * Physical therapy suggested STR. Rate controlled Atrial fibrillation Patient reports he was not in A. fib 6 months ago. He follows Dr. River ( scutcher tender) for SVT and A. fib. INR is 1.39 at admission * Rate control with metoprolol tartrate 25 twice a day * anti-coagulation with warfarin - goal INR 2-3 -->2.0 -->2.76 today, so dosed only 3 mg Coumadin today * CHADVasc score of 3 Right Ankle pain Patient had a history of gout, on allopurinol 100mg at home, colchicine for flares. He reports significant pain in his right heel, which apparently similar to his gouty attacks. * Xray right ankle shows soft tissue sweeling without any crystals. * continue colchicine 0.6mg BID for now, which seems to be helping Ground glass opacities in Chest CT Suggestive of 2 small ground glass opacities that requires follow up as out patient. Chronic and stable conditions Diabetes mellitus: Accu-Cheks and insulin sliding scale (on metformin at home) Gout: Allopurinol 100 mg daily DVT prophylaxis * On warfarin CODE STATUS * Full code Problem List: 1. Cellulitis 2. Atrial fibrillation with normal ventricular rate 3. Lymphedema of both lower extremities 4. Gout Pain Ratin Pain Location: right ankle region Pain Goal: Pain 4 or less Pain Plan: tylenol prn oxycodone 10mg Q8 PRN Tomorrow's Labs & Rationales: bep to monitor cr PT for INR SHARON MARTINEZ 04/11/17 1115: Attending MD Review Statement Attending Statement Attending MD Statement: examined this patient, discuss w/resident/PA/PROPERTY LOSS INSURANCE CLAIM ADJUSTER, agreed w/resident/PA/PROPERTY LOSS INSURANCE CLAIM ADJUSTER, discussed with family, reviewed EMR data (avail), discussed with nursing, discussed with case mgmt, reviewed images, amended to note Attending Assessment/Plan: 86-year-old male with past medical history of chronic right-sided heart failure with elevated PA pressures and A. fib on Coumadin who came in with severe bilateral lower extremity edema and stasis dermatitis. He was grossly volume overloaded on admission and is responding to IV Lasix. He's been watched off antibiotics as there is no evidence of cellulitis. Initially his INR was subtherapeutic but the ultrasound was negative for DVT and now his INR is therapeutic. He is complaining of right ankle joint pain. 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 The plan is to continue high dose IV Lasix 80 twice a day per cardiology and follow his renal function closely. Dose is Coumadin to keep his INR therapeutic at all times and follow bilateral lower extremities clinically. Cont current care, f/u cardiology for lasix i/v to PO.
[2017-04-11 14:30] VITALS: BP 130/80
[2017-04-11 22:46] VITALS: BP 140/70
[2017-04-12 06:38] VITALS: BP 132/68
--- NOTE | 2017-04-12 07:24 | PN- Housestaff ---
FATMATA JOHNSON,CHELITA 04/12/17 0723: Subjective Follow-up For: Bilateral lower extremity edema stasis dermatitis Subjective: I saw and examined the patient today morning He is doing well, there is significant improvement in his leg edema. Review of Systems Constitutional: Reports: see HPI. Objective Last 24 Hrs of Vital Signs/I&O Vital Signs Date Time Temp Pulse Resp B/P B/P Pulse O2 O2 Flow FiO2 Mean Ox Delivery Rate 04/12 0638 98.1 84 16 132/68 96 04/11 2246 98.3 65 20 140/70 97 Room Air 04/11 2104 140/70 04/11 1600 Room Air 04/11 1430 98.2 88 20 130/80 98 04/11 0913 60 132/70 Intake & Output 04/12 0800 04/12 0000 04/11 1600 Intake Total 120 340 55 Output Total 450 1800 1315 Balance -330 -1460 -1260 Intake, IV 25 Intake, Oral 120 340 30 Output, Urine 450 1800 1315 Physical Exam General Appearance: Alert, Oriented X3, Cooperative Skin: No Rashes, No Breakdown, edema getting better HEENT: Atraumatic, PERRLA, EOMI Neck: Supple Cardiovascular: Normal S1, Normal S2 Lungs: Clear to Auscultation, Normal Air Movement Abdomen: Normal Bowel Sounds, Soft, No Tenderness Neurological: Normal Speech, Strength at 5/5 X4 Ext, Normal Tone, Sensation Intact Extremities: No Clubbing, No Cyanosis, 3+ pitting edema present Vascular: Normal Pulses Current Medications: Current Medications Sig/Elliot Start time Last Medication Dose Route Stop Time Status Admin Acetaminophen 650 MG Q8P PRN 04/07 2115 AC 04/10 PO 2008 Acetaminophen 1,000 MG Q8P PRN 04/07 2115 AC IV Allopurinol 100 MG DAILY 04/08 1000 AC 04/11 PO 0913 Atorvastatin Calcium 20 MG 1700 04/08 1700 AC 04/11 PO 165 Colchicine 600 MCG BID 04/09 1353 AC 04/11 PO 2103 Docusate Sodium 100 MG BID 04/11 1000 AC 04/11 PO 210 Furosemide 80 MG 7:30 AM, & 4:30 PM 04/09 1630 AC 04/11 IV 1655 Insulin Aspart 0 TIDAC 04/08 0800 AC 04/11 SC 0814 Metoprolol Tartrate 25 MG BID 04/07 2200 AC 04/11 PO 2104 Oxycodone HCl 10 MG Q8P PRN 04/07 2115 AC PO Polyethylene Glycol 17 GM DAILY 04/11 1000 AC 04/11 PO 0909 Polyethylene Glycol 17 GM DAILY PRN 04/10 1700 DC PO 04/11 0959 Potassium Chloride 40 MEQ ONCE ONE 04/11 1130 DC 04/11 PO 04/11 1131 1309 Senna/Docusate Sodium 1 TAB BID PRN 04/10 1700 DC PO Warfarin Sodium 3 MG COUMADIN 1700 ONE 04/11 1700 DC 04/11 PO 04/11 1701 1655 Last 24 Hrs of Lab/Robin Results Last 24 Hrs of Labs/Mics: Laboratory Tests 04/12/17 0712: Anion Gap 5, Estimated GFR 48 L, BUN/Creatinine Ratio 24.3, PT 29.8 H, INR 2.87 H Assessment/Plan Assessment: 86-year-old male with PMH of A. fib, SVT, diabetes was sent to ED by for progressive worsening of bilateral leg swelling. Patient is mobile at baseline. Although warm and mildly tender to touch - no white count and leukocytosis --> less likely superadded cellulitis. We did a Doppler ultrasound to rule out DVT given subtherapeutic INR and not very mobile - negative. Plan Admitted to general medicine floor for: Bilateral lower extremity edema Long-standing history of chronic venous insufficiency resulting in bilateral lower extremity edema. He has been following wound care center with recent change in dressings and Joss bandages from stockings, recent increase in Lasix dose to 120 mg from 80 mg. Despite any improvement there is progressive worsening of the condition with increased pain/erythema/warmth concerning superadded infection. Although he had crusting, weeping wounds, he remained afebrile without any white count, so less likely of an infection. * switched to IV Lasix 80 mg once a day, Cr 1.4 today * Conversion to oral lasix 80mg from tomorrow morning - we will monitor fulid balance for 24hrs and if positive need to change the dose. * Encourage leg elevation, local wound care. * Pain control with oxycodone 10 mg every 8 when necessary, IV Tylenol * Wound care consult * Physical therapy suggested STR. Rate controlled Atrial fibrillation Patient reports he was not in A. fib 6 months ago. He follows Dr. River ( fashion editor) for SVT and A. fib. INR is 1.39 at admission * Rate control with metoprolol tartrate 25 twice a day * anti-coagulation with warfarin - goal INR 2-3 -->2.87 today, so dosed only 2 mg Coumadin today * CHADVasc score of 3 Right Ankle pain Patient had a history of gout, on allopurinol 100mg at home, colchicine for flares. He reports significant pain in his right heel, which apparently similar to his gouty attacks. * Xray right ankle shows soft tissue sweeling without any crystals. * Continue colchicine - may stop in the next few days. Ground glass opacities in Chest CT Suggestive of 2 small ground glass opacities that requires follow up as out patient. Chronic and stable conditions Diabetes mellitus: Accu-Cheks and insulin sliding scale (on metformin at home) Gout: Allopurinol 100 mg daily DVT prophylaxis * On warfarin CODE STATUS * Full code Problem List: 1. Atrial fibrillation with normal ventricular rate 2. Bilateral lower extremity edema Pain Ratin Pain Location: lower extremities Pain Goal: Pain 4 or less Pain Plan: tylenol prn Tomorrow's Labs & Rationales: bep to monitor Cr PT to monitor INR MICHELLEMARILINMAYI 04/12/17 1128: Attending MD Review Statement Attending Statement Attending MD Statement: examined this patient, discuss w/resident/PA/CAR SALES CONSULTANT, agreed w/resident/PA/CAR SALES CONSULTANT, discussed with family, reviewed EMR data (avail), discussed with nursing, discussed with case mgmt, reviewed images, amended to note Attending Assessment/Plan: 86-year-old male with past medical history of chronic right-sided heart failure with elevated PA pressures and A. fib on Coumadin who came in with severe bilateral lower extremity edema and stasis dermatitis. He was grossly volume overloaded on admission and is responding to IV Lasix. He's been watched off antibiotics as there is no evidence of cellulitis. Initially his INR was subtherapeutic but the ultrasound was negative for DVT and now his INR is therapeutic. He is complaining of right ankle joint pain. 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 The plan is to continue high dose IV Lasix 80 twice a day per cardiology and follow his renal function closely. Dose is Coumadin to keep his INR therapeutic at all times and follow bilateral lower extremities clinically. Cont current care, f/u cardiology for lasix i/v to PO. also concern for metabolic alkalosis. watch bmp.
[2017-04-12 08:48] LABS: PT 29.8 SEC (9.4-12.5)
--- NOTE | 2017-04-12 14:29 | PN- Cardiology ---
Subjective Subjective: The patient is sitting in the bedside chair. He is doing well. He denies any significant symptoms or issues. He continues to note tightness in his calves bilaterally, greater on the right side. No discomfort noted. Objective Vital Signs and I&Os Vital Signs Date Time Temp Pulse Resp B/P B/P Pulse O2 O2 Flow FiO2 Mean Ox Delivery Rate 04/12 0840 84 132/68 04/12 0638 98.1 84 16 132/68 96 04/11 2246 98.3 65 20 140/70 97 Room Air 04/11 2104 140/70 04/11 1600 Room Air 04/11 1430 98.2 88 20 130/80 98 Intake & Output 04/12 0800 04/12 0000 04/11 1600 04/11 0804/11 0000 Intake Total 120 340 55 240 600 Output Total 450 1800 9160 196 5586 Balance -330 -1460 -1260 -60 -650 Intake, IV 25 Intake, Oral 120 340 30 240 600 Output, Urine 450 1800 3469 782 6021 Patient 236 lb Weight Physical Exam: General Appearance Alert, Oriented X3, Cooperative, No Acute Distress Skin No Rashes, No Breakdown, warm to touch HEENT Atraumatic, PERRLA, EOMI Neck Supple Cardiovascular Normal S1, Normal S2, 1 to 2/6 systolic murmur left sternal border Lungs Clear to Auscultation and percussion bilaterally Abdomen Normal Bowel Sounds, Soft, No Tenderness Neurological Normal Speech, Sensation Intact Extremities No Clubbing, No Cyanosis, bilateral lower extremity edema with extensive skin breakdown with erythema, significant stasis changes noted with some residual weeping in the distal right lower extremity. Vascular Normal Pulses Current Medications: Current Medications Sig/Elliot Start time Last Medication Dose Route Stop Time Status Admin Acetaminophen 650 MG Q8P PRN 04/07 2115 AC 04/10 PO 2008 Acetaminophen 1,000 MG Q8P PRN 04/07 2115 AC IV Allopurinol 100 MG DAILY 04/08 1000 AC 04/12 PO 0840 Atorvastatin Calcium 20 MG 1700 04/08 1700 AC 04/11 PO 1655 Bisacodyl 10 MG ONCE ONE 04/12 0830 DC 04/12 ID 04/12 0831 0841 Colchicine 600 MCG BID 04/09 1353 AC 04/12 PO 0839 Docusate Sodium 100 MG BID 04/11 1000 AC 05/29 PO 0839 Furosemide 80 MG DAILY 04/13 1000 AC PO Furosemide 80 MG DAILY 04/12 1308 DC PO Furosemide 80 MG 7:30 AM, & 4:30 PM 04/09 1630 DC 04/12 IV 0842 Insulin Aspart 0 TIDAC 04/08 0800 AC 04/11 SC 0814 Magnesium Hydroxide 30 ML AT BEDTIME PRN 04/12 0830 AC PO Metoprolol Tartrate 25 MG BID 04/07 2200 AC 04/12 PO 0840 Oxycodone HCl 10 MG Q8P PRN 04/07 2115 AC PO Polyethylene Glycol 17 GM DAILY 04/11 1000 AC 04/12 PO 0841 Warfarin Sodium 3 MG COUMADIN 1700 ONE 04/11 1700 DC 04/11 PO 04/11 1701 1655 Results Last 48 Hrs of Labs/Mics: Laboratory Tests 04/12/17 0712: Anion Gap 5, Estimated GFR 48 L, BUN/Creatinine Ratio 24.3, PT 29.8 H, INR 2.87 H 04/11/17 0635: Anion Gap 7, Estimated GFR 48 L, BUN/Creatinine Ratio 28.6 H, PT 28.7 H, INR 2.76 H Assessment/Plan Assessment/Plan Assessment: 1. Bilateral lower extremity edema with stasis changes. 2. Paroxysmal atrial fibrillation 3. Hypertension 4. Chronic renal insufficiency 5. Mild macrocytic anemia Recommendations: -The patient is doing well. His lower extremity edema is still present but improving. -The patient has diuresed about 7000 mL over the last 5 days. His laboratories show that his bicarbonate level is increasing slightly suggestive of mild metabolic contraction alkalosis. -I discussed the situation with Dr. Finley today. The plan is to decrease the patient's Lasix to once daily IV today and reassess tomorrow. The possibility of transitioning to oral Lasix 80 mg a day will be addressed in the morning. If the patient's morning laboratories appear better, it might be possible to continue IV Lasix for another day or 2 in the hopes of improving his lower extremity edema further. -The patient will be reassessed in the morning. Continue telemetry? No
[2017-04-12 15:31] VITALS: BP 142/62
[2017-04-12 22:55] VITALS: BP 132/60
--- NOTE | 2017-04-13 07:01 | PN- Student ---
Subjective Subjective: Pt. is an 86 y.o MCM with a history of chronic venous stasis, afib, SVT, HTN, HL , pulmonary HTN, and gout who is day #7 of admission for bilateral leg edema. The patient is pleasant, cooperative, and under no apparent distress, experiences 0/10 lower leg pain. The pt still has a 1/10 right ankle pain that is tender upon palpation. He states that the 0.6mg colchine makes his pain better. Yesterday, the patient stated he drank a laxative and had a BM yesterday. Objective Objective: PE: General: Calm, cooperative in no apparent distress Neuro: Alert and oriented CV: Irregular. S1 and S2 heart. No mumurs, rubs or gallops. JVP 8cm Pulm: clear upon auscultation bilateral GI: bowel sounds normal. Non distended, nontender LE: Bilateral lower leg edema. Right foot 3+, Left food, 1+ Vital Signs Date Time Temp Pulse Resp B/P B/P Pulse O2 O2 Flow FiO2 Mean Ox Delivery Rate 04/13 0000 99 Room Air 04/12 2255 99.0 67 20 132/60 99 Room Air 04/12 2039 69 132/66 04/12 1531 97.9 64 20 142/62 99 04/12 0840 84 132/68 04/12 0638 98.1 84 16 132/68 96 04/11 2246 98.3 65 20 140/70 97 Room Air 04/11 2104 140/70 04/11 1600 Room Air 04/11 1430 98.2 88 20 130/80 98 04/11 0913 60 132/70 04/11 0655 97.7 68 20 120/70 97 Room Air 04/10 2100 98.2 46 20 126/58 96 Room Air 04/10 2009 71 122/60 04/10 1600 Room Air 04/10 1429 97.2 69 20 122/60 97 Room Air 04/10 0915 64 130/64 04/10 0706 97.5 64 20 130/64 96 Room Air 04/09 2243 98.7 63 19 122/60 96 Room Air 04/09 2103 78 130/70 04/09 1750 Room Air Room Air 04/09 1515 98.0 56 18 122/68 96 Room Air 04/09 1016 62 136/72 04/09 0659 97.8 60 18 136/70 97 04/08 2229 99.7 60 20 126/64 97 Room Air 04/08 2121 69 128/70 04/08 1454 98.1 68 20 110/60 97 04/08 0910 70 120/50 04/08 0645 97.9 77 20 100/70 96 Room Air 04/08 0059 99.6 58 20 134/60 96 Room Air 04/07 2300 98.5 69 18 141/65 04/07 2259 98.5 69 18 141/65 97 Room Air Room Air 04/07 2014 98.7 76 16 156/72 97 Room Air 04/07 1314 98.0 72 18 150/70 100 Room Air Last 24 Hours I&Os 04/13 0800 04/13 0000 04/12 1600 Intake Total 800 525 Output Total 640 910 5978 Balance -400 20 -475 Intake, IV 25 Intake, Oral 800 500 Number 1 Bowel Movements Output, Urine 614 887 0148 Patient 236 lb Weight Laboratory Tests 04/12/17 0712: Anion Gap 5, Estimated GFR 48 L, BUN/Creatinine Ratio 24.3, PT 29.8 H, INR 2.87 H Microbiology Date/Time Procedure - Status Source Growth 04/07 1515 Blood Culture - RES BLOOD Orders Procedure Date/time Status PROTHROMBIN TIME 04/13 06 Active BASIC ELECTROLYTES PLUS BUN&CR 04/13 06 Active Change service to 04/12 2019 Active PROTHROMBIN TIME 04/12 0600 Complete BASIC ELECTROLYTES PLUS BUN&CR 04/12 06 Complete House Staff 04/12 UNK Active PROTHROMBIN TIME 04/11 0600 Complete BASIC ELECTROLYTES PLUS BUN&CR 04/11 0600 Complete Therapeutic Activities 04/11 UNK Complete Therapeutic Exercise 04/11 UNK Complete Gait Training 04/11 UNK Complete Therapeutic Activities 04/10 UNK Complete Therapeutic Exercise 04/10 UNK Complete Neuromuscular Re-ed 04/10 UNK Complete Gait Training 04/10 UNK Complete 04/12/17 Cardiology Consult: states that pt is doing well. Pt. bicarb was increasing and suggestive of mild metabolic contraction alkalosis. He discussed with Dr. Finley and possible transition to Lasix 80mg PO QD, but if morning labs are better, then to continue IV Lasix for 1-2 days. Assessment/Plan Assessment: Assessment: Pt. is an 86 y.o MCM with a history of chronic venous stasis, afib, SVT, HTN, HL , pulmonary HTN, DM, and gout who was admitted for bilateral leg edema, erythema , and pain, which is improving with leg elevation and Lasix 80mg IV BID. He also experienced right ankle pain, which is improved on 0.6 mg of colchicine. 1. Bilateral Leg Edema: Pt.'s bilateral leg edema is improving on Lasix leg elevation. Yesterday his Lasix was reduced to once a day. Today, we will start him on Lasix 80mg PO BID. We will monitor his edema and kidney function. If he tolerating the change and kidney function is stable, then possible discharge tomorrow 2. DVT prophylaxis: Warfarin 2mg. INR was 2.56 and is in therapeutic range. 3. Ankle Pain: Possible Acute gout attack: On Wednesday, the pt experienced a new, sudden onset of lateral, right ankle pain. Diuretic use can provoke gouty arthritis and he is currently on 80mg Furosemide IV BID. This may have precipated an acute gout attack. We will continue his allopurinol as prescribed and add colchicine 0.6mg TID. To diagnose this an acute gout attack, he would need synovial fluid analysis. This is not favorable because of his leg edema and we can introduce infection from the procedure. Therefore, the risk will outweigh the benefit for this patient. Xray was performed and it did not show any erosions or effusions. Today, his pain is well controlled at a 2/10 on colchicine 0.6mg and the pt. would like to continue colchicine. 3. Atrial fibrillation: On 2mg warfarin. We will continue to order PT/INR and monitor his anticoagulation. 4. HTN: his BP is stable on his cardiovascular medications and will continue to monitor. 5. DM: Accuchecks and Novolog as per sliding scale. Pt. uses Metformin 1,000mg at home. 6. Constipation: The patient has not had BM since Wednesday. Miralax and Colace has been ordered to help alleviate symptoms. Warfarin is at 2.87 2mg
[2017-04-13 07:25] VITALS: BP 126/70
--- NOTE | 2017-04-13 07:31 | PN- Housestaff ---
FATMATA JOHNSON,CHELITA 04/13/17 0731: Subjective Follow-up For: Bilateral lower extremity edema Right ankle pain A.Fib on warfarin Subjective: I saw and examined the patient today morning He is elevating his legs all through the day. His edema appear much better, reports he is urinating well. still had 3/10 pain in his right ankle region. Review of Systems Constitutional: Reports: see HPI. Comments: ROS negative except the above Objective Last 24 Hrs of Vital Signs/I&O Vital Signs Date Time Temp Pulse Resp B/P B/P Pulse O2 O2 Flow FiO2 Mean Ox Delivery Rate 04/13 0725 98.6 93 20 126/70 93 Room Air 04/13 0000 99 Room Air 04/12 2255 99.0 67 20 132/60 99 Room Air 04/12 2039 69 132/66 04/12 1531 97.9 64 20 142/62 99 04/12 0840 84 132/68 Intake & Output 04/13 0800 04/13 0000 04/12 1600 Intake Total 800 525 Output Total 214 079 4537 Balance -650 20 -475 Intake, IV 25 Intake, Oral 800 500 Number 1 Bowel Movements Output, Urine 491 657 7027 Patient 104.922 kg 107.19 kg Weight Physical Exam General Appearance: Alert, Oriented X3, Cooperative Skin: bilteral lower extremity edema with chronic stasis changes in skin, mild tenderness in the right ankle region, 2 blisters evident on the right leg region , dressed. HEENT: Atraumatic, PERRLA, EOMI Neck: Supple Cardiovascular: Normal S1, Normal S2 Lungs: Clear to Auscultation, Normal Air Movement Abdomen: Normal Bowel Sounds, Soft, No Tenderness Neurological: Normal Tone, Sensation Intact, Cranial Nerves 3-12 NL Current Medications: Current Medications Sig/Elliot Start time Last Medication Dose Route Stop Time Status Admin Acetaminophen 650 MG Q8P PRN 04/07 2115 AC 04/10 PO 2008 Acetaminophen 1,000 MG Q8P PRN 04/07 2115 AC IV Allopurinol 100 MG DAILY 04/08 1000 AC 04/13 PO 0955 Atorvastatin Calcium 20 MG 1700 04/08 1700 AC 04/13 PO 1650 Colchicine 600 MCG BID 04/12 2200 AC 04/13 PO 0956 Docusate Sodium 100 MG BID 04/11 1000 AC 04/13 PO 0956 Furosemide 80 MG DAILY 04/13 1000 AC 04/13 PO 0956 Insulin Aspart 0 TIDAC 04/08 0800 AC 04/12 SC 1712 Magnesium Hydroxide 30 ML AT BEDTIME PRN 04/12 0830 AC PO Metoprolol Tartrate 25 MG BID 04/07 2200 AC 04/13 PO 0956 Oxycodone HCl 10 MG Q8P PRN 04/07 2115 AC PO Patient Medication 1 ED .STK-MED ONE 04/13 1354 DC Teaching ED 04/13 1355 Polyethylene Glycol 17 GM DAILY 04/11 1000 AC 04/13 PO 0955 Warfarin Sodium 2.5 MG COUMADIN 1700 ONE 04/13 1700 DC 04/13 PO 04/13 1701 1650 Last 24 Hrs of Lab/Robin Results Last 24 Hrs of Labs/Mics: Laboratory Tests 04/13/17 0716: Anion Gap 9, Estimated GFR 53 L, BUN/Creatinine Ratio 27.7 H, PT 26.2 H, INR 2.52 H Assessment/Plan Assessment: 86-year-old male with PMH of A. fib, SVT, diabetes was sent to ED by for progressive worsening of bilateral leg swelling. Patient is mobile at baseline. Although warm and mildly tender to touch - no white count and leukocytosis --> less likely superadded cellulitis. We did a Doppler ultrasound to rule out DVT given subtherapeutic INR and not very mobile - negative. Plan Admitted to general medicine floor for: Bilateral lower extremity edema Long-standing history of chronic venous insufficiency resulting in bilateral lower extremity edema. He has been following wound care center with recent change in dressings and Joss bandages from stockings, recent increase in Lasix dose to 120 mg from 80 mg. Despite any improvement there is progressive worsening of the condition with increased pain/erythema/warmth concerning superadded infection. Although he had crusting, weeping wounds, he remained afebrile without any white count, so less likely of an infection. * Oral lasix 80 mg once a day - we will monitor fulid balance for 24hrs and if positive need to change the dose. * Encourage leg elevation, local wound care. * Pain control with oxycodone 10 mg every 8 when necessary, Tylenol * Wound care consult * Physical therapy suggested STR. Rate controlled Atrial fibrillation Patient reports he was not in A. fib 6 months ago. He follows Dr. River ( riding double) for SVT and A. fib. INR is 1.39 at admission * Rate control with metoprolol tartrate 25 twice a day * anti-coagulation with warfarin - goal INR 2-3 -->2.52 today, so dosed 2.5 mg Coumadin today * CHADVasc score of 3 Right Ankle pain Patient had a history of gout, on allopurinol 100mg at home, colchicine for flares. He reports significant pain in his right heel, which apparently similar to his gouty attacks. * Xray right ankle shows soft tissue sweeling without any crystals. * Continue colchicine - may stop in the next few days. Ground glass opacities in Chest CT Suggestive of 2 small ground glass opacities that requires follow up as out patient. Chronic and stable conditions Diabetes mellitus: Accu-Cheks and insulin sliding scale (on metformin at home) DVT prophylaxis * On warfarin CODE STATUS * Full code Problem List: 1. Atrial fibrillation with normal ventricular rate 2. Bilateral lower extremity edema 3. Gout Pain Ratin Pain Location: right ankle region Pain Goal: Pain 4 or less Pain Plan: tylenol prn Tomorrow's Labs & Rationales: bep to monitor Cr PT for INR TAMIKA GOMES MD 04/13/17 1605: Attending MD Review Statement Attending Statement Attending MD Statement: examined this patient, discuss w/resident/PA/PUBLIC SPEAKING PROFESSOR, agreed w/resident/PA/PUBLIC SPEAKING PROFESSOR, reviewed EMR data (avail), discussed with nursing, discussed with case mgmt, amended to note Attending Assessment/Plan: Patient seen and examined. Resting comfortably and not in any acute distress. No issues overnight. Patient reports that he has been using compression stockings chronically at home. Reports that he discontinued them the recommendations of his group sales manager due to development of Hemoccult logic issues. He was limited wound center for Joss wrapping but states that the lower extremity swelling suddenly got too large to handle and he was referred for further evaluation. He has been afebrile at hemodynamically stable here. Been doing well off on antibiotic therapy. He has been diuresed aggressively with significant volume loss of his renal function has remained stable. Cardiology follow-up appreciated. We will transition him back to his home dose of Lasix. He will need to restart his compression stockings at the time of discharge. He will also need close follow-up with the wound care service as an outpatient. Anticipate discharge in the next 24 hours if renal function remains stable.
[2017-04-13 08:10] LABS: PT 26.2 SEC (9.4-12.5)
--- NOTE | 2017-04-13 08:24 | PN- Wound Care ---
Subjective Subjective: Lower extremity edema is markedly improved. Wounds are healed except for a small 1 x 0.5 cm ulcer left lower extremity. Objective Vital Signs and I&Os Vital Signs Result Date Time Pulse Ox 93 04/13 0725 B/P 126/70 04/13 0725 O2 Delivery Room Air 04/13 0725 Temp 98.6 04/13 0725 Pulse 93 04/13 0725 Resp 20 04/13 0725 O2 Flow Rate Room Air 04/09 1750 Intake & Output 04/13 0000 04/12 1600 04/12 0800 Intake Total 800 525 120 Output Total 780 1000 450 Balance 20 -475 -330 Intake, IV 25 Intake, Oral 800 500 120 Number 1 Bowel Movements Output, Urine 780 1000 450 Patient 236 lb Weight Right leg ulcers have healed to closure all left leg ulcers are healed to closure except for a small residual left lower lateral leg ulcer. There remains a small left lower extremity anterior blister approximately 1 x 0.5 cm Impression/Plan Impression/Plan Impression/Plan: 86-year-old gentleman who has venous insufficiency admitted with elevated BMP has improved with bedrest and diuresis. His wounds have healed except for 2 small residual blisters. Continue negative fluid balance as renal function allows. Aggressive cleansing of his legs with soap and water. 2 small blisters can be covered with Xeroform and gauze. Evaluate complaints of right ankle pain. He has elastic compression stockings which should be placed upon discharge now has his wounds are healed. Follow Up in wound care center after discharge. Overall he is improved dramatically he should be advised about the need for daily weights. Follow-up in the wound center
--- NOTE | 2017-04-13 10:46 | PN- Cardiology ---
Subjective Subjective: Patient states he feels well overall. He denies chest pain or shortness of breath. Review of Systems: Eyes no blurred or double vision Ears no deafness or ringing Nose and throat no recurrent sinusitis Lungs per history of present illness Heart per history of present illness Abdomen no nausea vomiting Musculoskeletal occasional muscle and joint pains Psych no anxiety or depression Neuro without recurrent headache or seizures Endocrine no heat or cold intolerance Objective Vital Signs and I&Os Vital Signs Date Time Temp Pulse Resp B/P B/P Pulse O2 O2 Flow FiO2 Mean Ox Delivery Rate 04/13 0956 60 112/70 04/13 0725 98.6 93 20 126/70 93 Room Air 04/13 0000 99 Room Air 04/12 2255 99.0 67 20 132/60 99 Room Air 04/12 2039 69 132/66 04/12 1531 97.9 64 20 142/62 99 Intake & Output 04/13 1600 04/13 0800 04/13 0000 04/12 1600 04/12 0800 04/12 0000 Intake Total 0 800 525 120 340 Output Total 250 622 177 3168 450 1800 Balance -250 -650 20 -475 -330 -1460 Intake, IV 0 25 Intake, Oral 0 800 500 120 340 Number 0 1 Bowel Movements Output, Urine 250 317 514 1885 450 1800 Patient 231 lb 236 lb Weight Physical Exam: Patient is a well-developed well-nourished male appearing in no acute distress HEENT is unremarkable Neck is supple there is no JVD Lungs are clear Heart regular rhythm S1 and S2 are normal no gallops or rubs. Systolic ejection murmur at left sternal border Abdomen bowel sounds positive Extremities 2+ edema with erythema bilaterally Current Medications: Current Medications Sig/Elliot Start time Last Medication Dose Route Stop Time Status Admin Acetaminophen 650 MG Q8P PRN 04/07 2115 AC 04/10 PO 2008 Acetaminophen 1,000 MG Q8P PRN 04/07 2115 AC IV Allopurinol 100 MG DAILY 04/08 1000 AC 04/13 PO 0955 Atorvastatin Calcium 20 MG 1700 04/08 1700 AC 04/12 PO 1712 Colchicine 600 MCG BID 04/12 2200 AC 04/13 PO 0956 Colchicine 600 MCG BID 04/09 1353 DC 04/12 PO 0839 Docusate Sodium 100 MG BID 04/11 1000 AC 04/13 PO 0956 Furosemide 80 MG DAILY 04/13 1000 AC 04/13 PO 0956 Furosemide 80 MG DAILY 04/12 1308 DC PO Furosemide 80 MG 7:30 AM, & 4:30 PM 04/09 1630 DC 04/12 IV 0842 Insulin Aspart 0 TIDAC 04/08 0800 AC 04/12 SC 1712 Magnesium Hydroxide 30 ML AT BEDTIME PRN 04/12 0830 AC PO Metoprolol Tartrate 25 MG BID 04/07 2200 AC 04/13 PO 0956 Oxycodone HCl 10 MG Q8P PRN 04/07 2115 AC PO Polyethylene Glycol 17 GM DAILY 04/11 1000 AC 04/13 PO 0955 Warfarin Sodium 2 MG COUMADIN 1700 ONE 04/12 1700 DC 04/12 PO 04/12 1701 1712 Warfarin Sodium 2 MG .STK-MED ONE 04/12 1652 DC PO 04/12 1653 Results Last 48 Hrs of Labs/Mics: Laboratory Tests 04/13/17 0716: Anion Gap 9, Estimated GFR 53 L, BUN/Creatinine Ratio 27.7 H, PT 26.2 H, INR 2.52 H 04/12/17 0712: Anion Gap 5, Estimated GFR 48 L, BUN/Creatinine Ratio 24.3, PT 29.8 H, INR 2.87 H Assessment/Plan Assessment/Plan 1. Bilateral lower extremity edema with stasis changes. 2. Paroxysmal atrial fibrillation on Coumadin 3. Hypertension stable 4. Chronic renal insufficiency stable 5. Mild macrocytic anemia Recommendations: -The patient is doing well. His lower extremity edema is still present but improving. -The patient has diuresed about 7000 mL over the last 5 days. His renal function remained stable -I discussed with the resident's will change Lasix to by mouth Continue telemetry? No
[2017-04-13 14:20] VITALS: BP 118/64
[2017-04-13 22:02] VITALS: BP 150/70
[2017-04-14 06:18] VITALS: BP 140/70
--- NOTE | 2017-04-14 07:07 | PN- Housestaff ---
FATMATA JOHNSON,CHELITA 04/14/17 0707: Subjective Follow-up For: Bilateral lower extremity edema Subjective: I saw and examined the patient today morning He is doing well, ambulating in the hallways. Eager to go home, reports slept well. Negative balance of around 500 - 700 with oral lasix. Reports his pain is much improved. Review of Systems Constitutional: Reports: see HPI. Objective Last 24 Hrs of Vital Signs/I&O Vital Signs Date Time Temp Pulse Resp B/P B/P Pulse O2 O2 Flow FiO2 Mean Ox Delivery Rate 04/14 0618 98.1 66 20 140/70 95 Room Air 04/13 2202 98.5 60 20 150/70 98 Room Air 04/13 2127 60 150/80 04/13 1554 Room Air Room Air 04/13 1420 98.4 58 20 118/64 97 04/13 0956 60 112/70 04/13 0725 98.6 93 20 126/70 93 Room Air Intake & Output 04/14 0800 04/14 0000 04/13 1600 Intake Total 240 560 900 Output Total 650 550 650 Balance -410 10 250 Intake, Oral 240 560 900 Number 0 Bowel Movements Output, Urine 650 550 650 Physical Exam General Appearance: Alert, Oriented X3, Cooperative, No Acute Distress Skin: chronic venous stasis changes present on bilateral lower extremities. HEENT: Atraumatic, PERRLA Neck: Supple Cardiovascular: Normal S1, Normal S2 Lungs: Clear to Auscultation, Normal Air Movement Abdomen: Normal Bowel Sounds, Soft, No Tenderness Neurological: Normal Gait, Normal Speech, Strength at 5/5 X4 Ext, Normal Tone Extremities: No Clubbing, No Cyanosis, 3+ pitting edema present Vascular: Pulses Symmetrical Current Medications: Current Medications Sig/Elliot Start time Last Medication Dose Route Stop Time Status Admin Acetaminophen 650 MG Q8P PRN 04/07 2115 AC 04/10 PO 2008 Acetaminophen 1,000 MG Q8P PRN 04/07 2115 AC IV Allopurinol 100 MG DAILY 04/08 1000 AC 04/13 PO 0955 Atorvastatin Calcium 20 MG 1700 04/08 1700 AC 04/13 PO 1650 Colchicine 600 MCG BID 04/12 2200 AC 04/13 PO 2125 Docusate Sodium 100 MG BID 04/11 1000 AC 04/13 PO 212 Furosemide 80 MG DAILY 04/13 1000 AC 04/13 PO 0956 Insulin Aspart 0 TIDAC 04/08 0800 AC 04/12 SC 1712 Magnesium Hydroxide 30 ML AT BEDTIME PRN 04/12 0830 AC PO Metoprolol Tartrate 25 MG BID 04/07 2200 AC 04/13 PO 2127 Oxycodone HCl 10 MG Q8P PRN 04/07 2115 AC PO Patient Medication 1 ED .STK-MED ONE 04/13 1354 DC Teaching ED 04/13 1355 Polyethylene Glycol 17 GM DAILY 04/11 1000 AC 04/13 PO 0955 Warfarin Sodium 2.5 MG COUMADIN 1700 ONE 04/13 1700 DC 04/13 PO 04/13 1701 1650 Last 24 Hrs of Lab/Robin Results Last 24 Hrs of Labs/Mics: Laboratory Tests 04/14/17 0615: Anion Gap 8, Estimated GFR 53 L, BUN/Creatinine Ratio 29.2 H, PT 23.4 H, INR 2.25 H Assessment/Plan Assessment: 86-year-old male with PMH of A. fib, SVT, diabetes was sent to ED by for progressive worsening of bilateral leg swelling. Patient is mobile at baseline. Although warm and mildly tender to touch - no white count and leukocytosis --> less likely superadded cellulitis. We did a Doppler ultrasound to rule out DVT given subtherapeutic INR and not very mobile - negative. Plan Admitted to general medicine floor for: Bilateral lower extremity edema Long-standing history of chronic venous insufficiency resulting in bilateral lower extremity edema. He has been following wound care center with recent change in dressings and Joss bandages from stockings, recent increase in Lasix dose to 120 mg from 80 mg. Despite any improvement there is progressive worsening of the condition with increased pain/erythema/warmth concerning superadded infection. Although he had crusting, weeping wounds, he remained afebrile without any white count, so less likely of an infection. * Continue lasix 80mg daily as able to maintain negative balance. * Encourage leg elevation, local wound care. * Pain control with oxycodone 10 mg every 8 when necessary, Tylenol * Wound care consult * Physical therapy suggested STR. * Stable for discharge today. Rate controlled Atrial fibrillation Patient reports he was not in A. fib 6 months ago. He follows Dr. River ( engine boss) for SVT and A. fib. INR is 1.39 at admission * Rate control with metoprolol tartrate 25 twice a day * anti-coagulation with warfarin - goal INR 2-3 -->2.25 today. * CHADVasc score of 3 Right Ankle pain Patient had a history of gout, on allopurinol 100mg at home, colchicine for flares. He reports significant pain in his right heel, which apparently similar to his gouty attacks. * Xray right ankle shows soft tissue sweeling without any crystals. * Colchine discontinued at discharge, as pain was improved. Ground glass opacities in Chest CT Suggestive of 2 small ground glass opacities that requires follow up as out patient. Chronic and stable conditions Diabetes mellitus: Accu-Cheks and insulin sliding scale (on metformin at home) DVT prophylaxis * On warfarin CODE STATUS * Full code Problem List: 1. Lymphedema of both lower extremities 2. Gout 3. Bilateral lower extremity edema 4. Atrial fibrillation with normal ventricular rate Pain Ratin Pain Location: n/a Pain Goal: Pain 4 or less Pain Plan: tylenol prn Tomorrow's Labs & Rationales: none MIREYA JOHNSON,TAMIKA 04/14/17 1544: Attending MD Review Statement Attending Statement Attending MD Statement: examined this patient, discuss w/resident/PA/FORESTRY HUNTER, agreed w/resident/PA/FORESTRY HUNTER, reviewed EMR data (avail), discussed with nursing, discussed with case mgmt, amended to note Attending Assessment/Plan: Patient seen and examined. Resting comfortably and not in any distress. No issues overnight. He remains afebrile hemodynamically stable. He reports that his lower extremity pain has markedly improved. He is medically stable to discharge today. Patient however requires daily removal of his compression stockings. He is unable to do this on his own. Decisional service as well or foot however due to his living circumstances this will not be feasible option. He is being discharged to a care home facility for further care. He has completed 3 days therapy with colchicine and this will be discontinued. He is maintaining a negative balance on his current dose of Lasix. He'll be discharged on Lasix 80 mg orally once a day.
--- NOTE | 2017-04-14 07:15 | PN- Student ---
Subjective Subjective: Source and Reliability: Self referred, seems reliable CC: "My legs are swollen and on fire." HPI: Pt is a 86 yo MCM with a past hx of smoking and a medical history of atrial fibrillation, supraventricular tachycardia, chronic venous insufficiency, diabetes mellitus type II who was admited for bilateral lower leg edema, erythema, and pain. Pt states that internal left ankle pain is a 0/10 and has completely resolved. Today, he states he is going to a Rehab in [facility]. Objective Objective: PE: General: Calm, cooperative, in no apparent distress. Affect is appropriate to situation Neuro: Alert and oriented x 3 CV: Irregular. S1 and S2 heart. No mumurs, rubs or gallops. JVP 8cm Pulm: clear upon auscultation bilateral GI: bowel sounds normal. Non distended, nontender LE: Bilateral lower leg edema and erythema. Right foot 3+, Left food 1+ Results Results: Laboratory Tests 04/14/17 0615: Sodium Pending, Potassium Pending, Chloride Pending, Carbon Dioxide Pending, Anion Gap Pending, BUN Pending, Creatinine Pending, BUN/Creatinine Ratio Pending , PT Pending, INR Pending 04/13/17 0716: Anion Gap 9, Estimated GFR 53 L, BUN/Creatinine Ratio 27.7 H, PT 26.2 H, INR 2.52 H 04/12/17 0712: Anion Gap 5, Estimated GFR 48 L, BUN/Creatinine Ratio 24.3, PT 29.8 H, INR 2.87 H 04/13 Cardiology Consult 1. Bilateral lower extremity edema with stasis changes. 2. Paroxysmal atrial fibrillation on Coumadin 3. Hypertension stable 4. Chronic renal insufficiency stable 5. Mild macrocytic anemia Recommendations: -The patient is doing well. His lower extremity edema is still present but improving. -The patient has diuresed about 7000 mL over the last 5 days. His renal function remained stable -I discussed with the resident's will change Lasix to by mouth. 04/13 Wound Consult 86-year-old gentleman who has venous insufficiency admitted with elevated BMP has improved with bedrest and diuresis. His wounds have healed except for 2 small residual blisters. Continue negative fluid balance as renal function allows. Aggressive cleansing of his legs with soap and water. 2 small blisters can be covered with Xeroform and gauze. Evaluate complaints of right ankle pain. He has elastic compression stockings which should be placed upon discharge now has his wounds are healed. Follow Up in wound care center after discharge. Overall he is improved dramatically he should be advised about the need for daily weights. Follow-up in the wound center Assessment/Plan Assessment: Assessment: Pt. is an 86 y.o MCM with a history of chronic venous stasis, afib, SVT, HTN, HL , pulmonary HTN, DM, and gout who was admitted for bilateral leg edema, erythema , and pain, which is improving with leg elevation and Lasix 80mg IV BID. He also experienced right ankle pain, which is improved on 0.6 mg of colchicine. 1. Bilateral Leg Edema: Pt.'s bilateral leg edema is improving on Lasix leg elevation. Yesterday his Lasix was switched to oral medication. He is tolerating the change and kidney function is stable, D/C today 2. DVT prophylaxis: Warfarin 2mg. INR was 2.56 and is in therapeutic range. 3. Ankle Pain: Possible Acute gout attack: On Wednesday, the pt experienced a new, sudden onset of lateral, right ankle pain. Diuretic use can provoke gouty arthritis and he is currently on 80mg Furosemide IV BID. This may have precipated an acute gout attack. We will continue his allopurinol as prescribed and add colchicine 0.6mg TID. To diagnose this an acute gout attack, he would need synovial fluid analysis. This is not favorable because of his leg edema and we can introduce infection from the procedure. Therefore, the risk will outweigh the benefit for this patient. Xray was performed and it did not show any erosions or effusions. Today, his pain is well controlled at a 2/10 on colchicine 0.6mg and the pt. would like to continue colchicine. 3. Atrial fibrillation: On 2.5 mg warfarin. We will continue to order PT/INR and monitor his anticoagulation. 4. HTN: his BP is stable on his cardiovascular medications and will continue to monitor. 5. DM: Accuchecks and Novolog as per sliding scale. Pt. uses Metformin 1,000mg at home. 6. Constipation: The patient had a BM on Wednesday. Plan: The pt.'s legs are improving with bed rest, leg elevation, and Lasix. Yesterday, the patient was switched from IV Lasix to Lasix 80mg PO QD. His kidney functions are stable; BUN 38 and Cr 1.3. Patient was reduced to Warfarin 2.5mg PO QD. Yesterday his PT was 26.2 and INR 2.52. Today his PT and INR were 23.4 and 2.25 respectively. He is within his therapeutic range for warfarin therapy. He is going to be discharged today to a Rehab in [facility]. It is recommended that he continues to use the compression stockings, cleansing the lower legs with soap and water, leg elevation. Furosemide will be changed to 80mg QD instead of 40mg BID. Warfarin will be reduced to 2.5mg. He is also to continue home meds as prescribed. We recommend to follow up with PCP.
[2017-04-14 08:20] LABS: PT 23.4 SEC (9.4-12.5)
--- NOTE | 2017-04-14 09:34 | NUR ---
PHYSICAL THERAPY: ATTEMPTED TO SEE Pt THIS A.M., Pt IN BED RESTING, DEFERRING P.T. AT THIS TIME. RN AWARE, P.T. TO F/U APPROPRIATE.
--- NOTE | 2017-04-14 11:00 | NUR ---
Physical Therapy: attempted to see pt again this morning. Pt reports he just ambulated down hallway and is refusing participation at this time. Pt also reports he will be discharged today. Will follow up tomorrow as appropriate. THank you.
--- NOTE | 2017-04-14 11:01 | PN- Cardiology ---
Subjective Subjective: Doing well. Ambulating without difficulty. Denies dyspnea. Edema continues to improve. Objective Vital Signs and I&Os Vital Signs Date Time Temp Pulse Resp B/P B/P Pulse O2 O2 Flow FiO2 Mean Ox Delivery Rate 04/14 1049 140/68 04/14 0618 98.1 66 20 140/70 95 Room Air 04/13 2202 98.5 60 20 150/70 98 Room Air 04/13 2127 60 150/80 04/13 1554 Room Air Room Air 04/13 1420 98.4 58 20 118/64 97 Intake & Output 04/14 1600 04/14 0804/14 0000 04/13 1600 04/13 0804/13 0000 Intake Total 240 560 900 0 800 Output Total 850 550 650 650 780 Balance -610 10 250 -650 20 Intake, IV 0 Intake, Oral 240 560 900 0 800 Number 0 0 Bowel Movements Output, Urine 850 550 650 650 780 Patient 231 lb Weight Physical Exam: General: no apparent distress. Alert. Eyes: No obvious scleral icterus. HEENT: No jugular venous distention or abnormal jugular venous pulsations. Cardiovascular: Normal intensity S1/S2. PMI not grossly displaced. Respiratory: Lungs clear to auscultation bilaterally. Abdomen: Soft, nontender with no guarding or rebound tenderness. Musculoskeletal: No clubbing or cyanosis noted, 2+ lower extremity edema noted Skin: Stasis changes noted Neurologic: No gross focal deficits noted. Current Medications: Current Medications Sig/Elliot Start time Last Medication Dose Route Stop Time Status Admin Acetaminophen 650 MG Q8P PRN 04/07 2115 AC 04/10 PO 2008 Acetaminophen 1,000 MG Q8P PRN 04/07 2115 AC IV Allopurinol 100 MG DAILY 04/08 1000 AC 04/14 PO 1048 Atorvastatin Calcium 20 MG 1700 04/08 1700 AC 04/13 PO 1650 Colchicine 600 MCG BID 04/12 2200 AC 04/14 PO 1048 Docusate Sodium 100 MG BID 04/11 1000 AC 04/14 PO 1048 Furosemide 80 MG DAILY 04/13 1000 AC 04/14 PO 1048 Insulin Aspart 0 TIDAC 04/08 0800 AC 04/12 SC 1712 Magnesium Hydroxide 30 ML AT BEDTIME PRN 04/12 0830 AC PO Metoprolol Tartrate 25 MG BID 04/070 AC 04/14 PO 1049 Oxycodone HCl 10 MG Q8P PRN 04/07 2115 AC PO Patient Medication 1 ED .STK-MED ONE 04/13 1354 DC Teaching ED 04/13 1355 Polyethylene Glycol 17 GM DAILY 04/11 1000 AC 04/14 PO 1048 Warfarin Sodium 2.5 MG COUMADIN 1700 ONE 04/13 1700 DC 04/13 PO 04/13 1701 1650 Results Last 48 Hrs of Labs/Mics: Laboratory Tests 04/14/17 0615: Anion Gap 8, Estimated GFR 53 L, BUN/Creatinine Ratio 29.2 H, PT 23.4 H, INR 2.25 H 04/13/17 0716: Anion Gap 9, Estimated GFR 53 L, BUN/Creatinine Ratio 27.7 H, PT 26.2 H, INR 2.52 H Recent Imaging Studies: The patient is not on telemetry Assessment/Plan Assessment/Plan 1. Bilateral lower extremity edema with stasis changes and chronic venous insufficiency 2. Paroxysmal atrial fibrillation on Coumadin 3. Hypertension stable 4. Chronic renal insufficiency stable 5. Mild macrocytic anemia 6. Possible gout attack? Patient is doing well and ambulating without any difficulty or dyspnea. Lower extremity edema continues to improve. He is now on oral Lasix. Continue to dose Coumadin to target INR. Blood pressure and creatinine remain stable. Cautious use of colchicine in the setting of chronic renal insufficiency. Tino Vicente MD [facility] Continue telemetry? Not applicable
[2017-04-14] MEDS ORDERED: LASIX80 M1 PO (11:04)
[2017-04-14 12:40] VITALS: BP 140/68
== END 2017-04-14 15:35 | DRG 301 ==
LOC: ERH 12:48 → 2NA 13:40 → ERHI 13:40 → ENRESERV 22:34 → 2NA 04-08 00:56 → ENPENDDIS 04-14 12:32 → 2NA 04-14 15:35
PROVIDERS: Emergency Medicine; Internal Medicine; Radiology Diagnostic Radiology; ADMIT Internal Medicine
DX: I87.2 Venous insufficiency (chronic) (peripheral) (principal); I27.2 Other secondary pulmonary hypertension; I48.0 Paroxysmal atrial fibrillation; E11.9 Type 2 diabetes mellitus without complications; D53.9 Nutritional anemia, unspecified; M10.9 Gout, unspecified; I89.0 Lymphedema, not elsewhere classified; Z79.01 Long term (current) use of anticoagulants; Z86.718 Personal history of other venous thrombosis and embolism; Z87.891 Personal history of nicotine dependence; R60.0 Localized edema; R23.8 Other skin changes; Z79.84 Long term (current) use of oral hypoglycemic drugs
CPT/HCPCS: 2NASP; ERO; 36415; 73610-RT; 82436; 87040; 93005; 93010; 97110-GO; 97112-GO; 97116-GO; 97162-GP; 97530-GO; G0463; J1650; J1940

== ENCOUNTER 2017-12-14 14:22 | Emergency (ER) | payer OTHER, MEDICARE ==
[~2017-12-14] VITALS: Ht 177.8 cm; Wt 106.6 kg
[~2017-12-14 14:22] MED LIST: ALLOPURINOL100 M1 PO; AUGMENTIN 875-1 EACH PO; COLCHICINE0.6 M2 PO; GLUCOPHAGE1000 M1 PO; KLOR-CON20 ME1 PO; LASIX40 M1 PO; LASIX80 M1 PO; LIPITOR20 M2 PO; LISINOPRIL10 M1 PO; LOVASTATIN20 M1 PO; METFORMIN HCL500 M2 PO; METOPROLOL TART25 M1 PO; PERCOCET 5-3251 EACH PO; WARFARIN SODIUM5 M1 PO
[2017-12-14 14:37] VITALS: BP 160/80
== END 2017-12-14 15:40 | disposition admitted as inpatient to this hospital (09) ==
LOC: ERH 14:22
DX: N50.89 Other specified disorders of the male genital organs (principal)